=== PATIENT | female | born 1970 | race African-American/Black ===

== ENCOUNTER 2017-03-20 06:35 | Emergency (ER) | payer MEDICAID ==
[~2017-03-20] VITALS: Ht 162.6 cm; Wt 59.1 kg
[~2017-03-20 06:35] MED LIST: ALBU6.7H IH; FLUT1DIS IH
[2017-03-20 07:41] LABS: APPEARANCE,URINE CLEAR (CLEAR); GLUCOSE, URINE (UA) NEGATIVE (NEGATIVE); KETONES,URINE NEGATIVE (NEGATIVE); LEUKOCYTE ESTERASE ,URINE NEGATIVE (NEGATIVE); OCCULT BLOOD,URINE NEGATIVE (NEGATIVE); PROTEIN,URINE NEGATIVE (NEGATIVE)
[2017-03-20 07:42] LABS: ADD UA MICROSCOPIC NO
[2017-03-20] MEDS ORDERED: ONDANSETRON HCL 4 MG/2 ML VIAL IVP ONE (08:15)
[2017-03-20] MEDS ORDERED: KETOROLAC TROMETHAMINE 30 MG/ML VIAL IVP ONE (08:15)
[2017-03-20] MEDS ORDERED: SODIUM CHLORIDE 0.9% 1,000 ML IV ONE (08:15)
[2017-03-20 08:34] LABS: HEMATOCRIT 22.2 % (36-46); HEMOGLOBIN 7.4 g/dL (12.0-16.0); MEAN CORPUSCULAR HEMOGLOBIN 33.3 pg (26.0-34.0); MEAN CORPUSCULAR HGB CONC 33.4 G/dL (31.0-37.0); MEAN CORPUSCULAR VOLUME 100 fL (80-100); PLATELET COUNT (AUTO) 119 K/uL (150-450); RED BLOOD CELL COUNT(AUTO) 2.23 MIL/uL (4.00-5.20); RED CELL DISTRIBUTION WIDTH 33.7 % (11.5-14.5); WHITE BLOOD COUNT (AUTO) 3.8 K/uL (4.5-11.0)
[2017-03-20 08:45] LABS: ANION GAP 9 mmol/L (8-16); CALCIUM, TOTAL 8.9 mg/dL (8.8-10.5); CARBON DIOXIDE 29 mmol/L (22-29); CHLORIDE 104 mmol/L (98-107); CREATININE 0.57 mg/dL (0.60-1.30); GLOMERULAR FILTR. RATE CALC > 60 mL/min (>60); POTASSIUM 3.5 mmol/L (3.5-5.1); SODIUM SERUM 142 mmol/L (136-145); UREA NITROGEN, BLOOD 12 mg/dL (7-18)
[2017-03-20 08:50] LABS: ALANINE AMINOTRANSFERASE 32 U/L (12-78); ALBUMIN 3.9 g/dL (3.4-5.0); ASPARTATE AMINOTRANSFERASE 61 U/L (15-37); BILIRUBIN,TOTAL 0.7 mg/dL (0.1-1.0); TOTAL PROTEIN, SERUM 7.7 g/dL (6.4-8.2)
[2017-03-20 09:02] LABS: LYMPHOCYTES % (MANUAL) 58 % (22-44); REACTIVE LYMPHOCYTES 4 % (0-0); TOTAL CELLS COUNTED 100
[2017-03-20 09:50] VITALS: BP 121/83
== END 2017-03-20 10:09 | disposition home or self-care (01) ==
LOC: EMS 06:37
DX: R19.7 Diarrhea, unspecified (principal); R07.81 Pleurodynia; D64.9 Anemia, unspecified; R11.2 Nausea with vomiting, unspecified; J45.909 Unspecified asthma, uncomplicated; F12.90 Cannabis use, unspecified, uncomplicated; F17.210 Nicotine dependence, cigarettes, uncomplicated; Z91.040 Latex allergy status; Z88.8 Allergy status to other drugs, medicaments and biological substances
CPT/HCPCS: 36415; 80053; 81003; 83690; 84703; 85025; 96361; 96374; 96375; 99284; J1885; J2405; J7030

== ENCOUNTER 2017-04-26 01:42 | Inpatient (IN) | payer MEDICAID ==
[~2017-04-26] VITALS: Ht 162.6 cm; Wt 59.0 kg
[2017-04-26] VITALS (18 sets, daily range): BP systolic 94–118; BP diastolic 54–74
[2017-04-26 02:50] LABS: BASOPHILS % (AUTO) 0.1 % (0.0-2.0); LYMPHOCYTES # (AUTO) 2.2 K/uL (1.0-4.8); LYMPHOCYTES % (AUTO) 46.8 % (22.0-44.0); MEAN CORPUSCULAR HGB CONC 33.4 G/dL (31.0-37.0); MEAN CORPUSCULAR VOLUME 93 fL (80-100); MONOCYTES % (AUTO) 0.5 % (2.0-9.0); NEUTROPHILS # (AUTO) 2.3 K/uL (1.8-7.7); NEUTROPHILS % (AUTO) 49.6 % (40.0-70.0); PLATELET COUNT (AUTO) 149 K/uL (150-450); RED BLOOD CELL COUNT(AUTO) 2.16 MIL/uL (4.00-5.20); RED CELL DISTRIBUTION WIDTH 26.9 % (11.5-14.5); WHITE BLOOD COUNT (AUTO) 4.7 K/uL (4.5-11.0)
[2017-04-26 02:52] LABS: HEMATOCRIT 20.1 % (36-46); HEMOGLOBIN 6.7 g/dL (12.0-16.0)
[2017-04-26 02:54] LABS: ANION GAP 6 mmol/L (8-16); CALCIUM, TOTAL 8.3 mg/dL (8.8-10.5); CARBON DIOXIDE 28 mmol/L (22-29); CHLORIDE 106 mmol/L (98-107); CREATININE 0.73 mg/dL (0.60-1.30); GLOMERULAR FILTR. RATE CALC > 60 mL/min (>60); POTASSIUM 3.6 mmol/L (3.5-5.1); SODIUM SERUM 140 mmol/L (136-145); UREA NITROGEN, BLOOD 12 mg/dL (7-18)
[2017-04-26 03:00] LABS: ALANINE AMINOTRANSFERASE 22 U/L (12-78); ALBUMIN 3.6 g/dL (3.4-5.0); ASPARTATE AMINOTRANSFERASE 43 U/L (15-37); BILIRUBIN,TOTAL 0.6 mg/dL (0.1-1.0); TOTAL PROTEIN, SERUM 6.8 g/dL (6.4-8.2)
[2017-04-26] MEDS ORDERED: SODIUM CHLORIDE 0.9% 250 ML IV ONE ×2 (03:05→11:57)
[2017-04-26] MEDS ORDERED: DiphenhydrAMINE HCL 25 MG CAPSULE PO ONE (03:15)
[2017-04-26] MEDS ORDERED: HYDROmorphone 2 MG/ML SYRINGE IVP ONE (03:15)
[2017-04-26] MEDS ORDERED: ONDANSETRON HCL 4 MG/2 ML VIAL IVP ONE (03:15)
[2017-04-26] MEDS ORDERED: ACETAMINOPHEN 500 MG TABLET PO ONE (03:15)
[2017-04-26 03:46] LABS: LACTATE DEHYDROGENASE 1347 U/L (81-234)
[2017-04-26 03:58] LABS: INR 1.3 (0.9-1.1); IRON, SERUM 162 mcg/dL (50-175); PROTHROMBIN TIME 13.4 SEC (9.4-11.6); TOTAL IRON BINDING CAPACITY 206 mcg/dL (250-450)
[2017-04-26 04:10] LABS: APPEARANCE,URINE CLEAR (CLEAR); GLUCOSE, URINE (UA) NEGATIVE (NEGATIVE); KETONES,URINE NEGATIVE (NEGATIVE); LEUKOCYTE ESTERASE ,URINE MODERATE (NEGATIVE); OCCULT BLOOD,URINE NEGATIVE (NEGATIVE); PH,URINE 5.5 (5.0-8.0); PROTEIN,URINE NEGATIVE (NEGATIVE)
[2017-04-26 04:31] LABS: B-TYPE NATRIURETIC PEPTIDE 23 pg/mL (0-100)
[2017-04-26] MEDS ORDERED: BISACODYL 10 MG RECTAL RECTAL SUPPOSITORY PR PRN (05:30)
[2017-04-26] MEDS ORDERED: MORPHINE SULFATE 4 MG/ML SYRINGE IVP PRN (05:30)
[2017-04-26] MEDS ORDERED: ACETAMINOPHEN 325 MG TABLET PO PRN ×2 (05:30)
[2017-04-26] MEDS ORDERED: MAGNESIUM HYDROXIDE SUSPENSION 30 ML UDCUP PO PRN (05:30)
[2017-04-26] MEDS ORDERED: ONDANSETRON HCL 4 MG/2 ML VIAL IVP PRN ×2 (05:30)
[2017-04-26] MEDS ORDERED: ZOLPIDEM TARTRATE 5 MG TABLET PO PRN (05:30)
[2017-04-26] MEDS ORDERED: 0.9% SODIUM CHLORIDE 10 ML SYRINGE IVP PRN (05:30)
[2017-04-26 05:35] LABS: RBC,URINE 0-2 /HPF (0-2); SQUAMOUS EPITHELIAL CELL,UR Rare /LPF (None Seen)
[2017-04-26] MEDS: PANTOPRAZOLE SODIUM 40 MG DR TABLET PO SCH (09:49)
[2017-04-26 16:41] LABS: BASOPHILS % (AUTO) 0.2 % (0.0-2.0); EOSINOPHILS % (AUTO) 3.8 % (1.0-6.0); HEMATOCRIT 28.1 % (36-46); HEMOGLOBIN 9.6 g/dL (12.0-16.0); LYMPHOCYTES % (AUTO) 50.3 % (22.0-44.0); MEAN CORPUSCULAR HEMOGLOBIN 31.2 pg (26.0-34.0); MEAN CORPUSCULAR HGB CONC 34.2 G/dL (31.0-37.0); MEAN CORPUSCULAR VOLUME 91 fL (80-100); MONOCYTES % (AUTO) 0.8 % (2.0-9.0); NEUTROPHILS # (AUTO) 1.8 K/uL (1.8-7.7); NEUTROPHILS % (AUTO) 44.9 % (40.0-70.0); PLATELET COUNT (AUTO) 129 K/uL (150-450); RED BLOOD CELL COUNT(AUTO) 3.07 MIL/uL (4.00-5.20); RED CELL DISTRIBUTION WIDTH 18.9 % (11.5-14.5); WHITE BLOOD COUNT (AUTO) 3.9 K/uL (4.5-11.0)
[2017-04-26] MEDS ORDERED: INFLUENZA VIRUS VACCINE QVS 2017-18 (3YR+)/PF 60 MCG/0.5 ML SYRINGE IM ONE (19:00)
[2017-04-26] MEDS ORDERED: PNEUMOCOCCAL VACCINE POLYVALENT 0.5 ML VIAL [PPSV23] IM ONE (19:00)
[2017-04-26] MEDS: OxyCODONE HCL/ACETAMINOPHEN 5-325 MG TABLET PO PRN (20:49)
[2017-04-26 21:27] LABS: RBC MORPHOLOGY COMMENT ABNORMAL RBC MORPH
[2017-04-27] VITALS (7 sets, daily range): BP systolic 108–123; BP diastolic 57–75
[2017-04-27] MEDS: OxyCODONE HCL/ACETAMINOPHEN 5-325 MG TABLET PO PRN
[2017-04-27 05:58] LABS: BASOPHILS # (AUTO) 0.01 K/uL (0.00-0.20); BASOPHILS % (AUTO) 0.4 % (0.0-2.0); EOSINOPHILS # (AUTO) 0.15 K/uL (0.00-0.70); EOSINOPHILS % (AUTO) 3.83 % (1.0-6.0); HEMATOCRIT 28.5 % (36-46); HEMOGLOBIN 9.5 g/dL (12.0-16.0); LYMPHOCYTES # (AUTO) 2.1 K/uL (1.0-4.8); LYMPHOCYTES % (AUTO) 55.6 % (22.0-44.0); MEAN CORPUSCULAR HEMOGLOBIN 30.6 pg (26.0-34.0); MEAN CORPUSCULAR HGB CONC 33.4 G/dL (31.0-37.0); MEAN CORPUSCULAR VOLUME 91 fL (80-100); MONOCYTES % (AUTO) 0.6 % (2.0-9.0); NEUTROPHILS # (AUTO) 1.5 K/uL (1.8-7.7); NEUTROPHILS % (AUTO) 39.6 % (40.0-70.0); PLATELET COUNT (AUTO) 116 K/uL (150-450); RED BLOOD CELL COUNT(AUTO) 3.12 MIL/uL (4.00-5.20); RED CELL DISTRIBUTION WIDTH 18.5 % (11.5-14.5); WHITE BLOOD COUNT (AUTO) 3.8 K/uL (4.5-11.0)
[2017-04-27 06:37] LABS: ALANINE AMINOTRANSFERASE 24 U/L (12-78); ALBUMIN 3.2 g/dL (3.4-5.0); ANION GAP 3 mmol/L (8-16); ASPARTATE AMINOTRANSFERASE 58 U/L (15-37); BILIRUBIN,TOTAL 0.5 mg/dL (0.1-1.0); CALCIUM, TOTAL 8.1 mg/dL (8.8-10.5); CARBON DIOXIDE 30 mmol/L (22-29); CHLORIDE 107 mmol/L (98-107); CHOL/HDL RATIO 2.6 (3.9-5.7); CREATININE 0.81 mg/dL (0.60-1.30); GLOMERULAR FILTR. RATE CALC > 60 mL/min (>60); PHOSPHORUS 4.4 mg/dL (2.5-4.9); POTASSIUM 4.2 mmol/L (3.5-5.1); SODIUM SERUM 140 mmol/L (136-145); THYROID STIMULATING HORMONE 2.88 uIU/mL (0.36-3.74); TOTAL PROTEIN, SERUM 6.4 g/dL (6.4-8.2); UREA NITROGEN, BLOOD 12 mg/dL (7-18)
[2017-04-27] MEDS: PANTOPRAZOLE SODIUM 40 MG DR TABLET PO SCH (08:05)
[2017-04-27] MEDS: IPRATROPIUM BROMIDE 0.5 MG/2.5 ML NEB SOLUTION NEB PRN ×2 (08:38→16:27)
[2017-04-27] MEDS: ALBUTEROL SULFATE 2.5 MG/0.5 ML NEB SOLUTION NEB PRN ×2 (08:38→16:27)
[2017-04-27 09:37] LABS: RBC MORPHOLOGY COMMENT ABNORMAL RBC MORPH
[2017-04-27] MEDS: CHOLECALCIFEROL (VIT D3) 1,000 UNITS TABLET PO SCH (15:52)
[2017-04-27] MEDS: PredniSONE 20 MG TABLET PO SCH (15:52)
[2017-04-28 03:52] VITALS: BP 97/64
[2017-04-28 07:52] VITALS: BP 121/78
[2017-04-28] MEDS: PredniSONE 20 MG TABLET PO SCH (08:17)
[2017-04-28] MEDS: CHOLECALCIFEROL (VIT D3) 1,000 UNITS TABLET PO SCH (08:18)
[2017-04-28] MEDS: PANTOPRAZOLE SODIUM 40 MG DR TABLET PO SCH (08:18)
[2017-04-28 09:38] LABS: BASOPHILS % (AUTO) 0.3 % (0.0-2.0); EOSINOPHILS % (AUTO) 0.6 % (1.0-6.0); HEMATOCRIT 32.1 % (36-46); LYMPHOCYTES # (AUTO) 1.5 K/uL (1.0-4.8); MEAN CORPUSCULAR HEMOGLOBIN 31.4 pg (26.0-34.0); MEAN CORPUSCULAR HGB CONC 34.2 G/dL (31.0-37.0); MEAN CORPUSCULAR VOLUME 92 fL (80-100); MONOCYTES % (AUTO) 0.6 % (2.0-9.0); NEUTROPHILS # (AUTO) 3.1 K/uL (1.8-7.7); NEUTROPHILS % (AUTO) 66.5 % (40.0-70.0); PLATELET COUNT (AUTO) 119 K/uL (150-450); RED CELL DISTRIBUTION WIDTH 18.9 % (11.5-14.5); WHITE BLOOD COUNT (AUTO) 4.7 K/uL (4.5-11.0)
[2017-04-28] MEDS ORDERED: AZIT500T4 PO (10:48)
[2017-04-28] MEDS ORDERED: PRED10TA3 PO (10:48)
[2017-04-28 11:05] LABS: RBC MORPHOLOGY COMMENT ABNORMAL RBC MORPH
[2017-04-28 11:32] VITALS: BP 120/73
[2017-04-28] MEDS ORDERED: PRED20 PO (11:37)
[2017-04-28] MEDS ORDERED: AZIT250T9 PO (11:39)
[2017-04-28] MEDS ORDERED: CHOL20002 PO (11:40)
== END 2017-04-28 13:00 | disposition home or self-care (01) | DRG 663 ==
LOC: EMS 01:43 → 4E 05:34
PROVIDERS: ADMIT Internal Medicine; ATTEND Internal Medicine
PROC: 30233N1 Transfusion of Nonautologous Red Blood Cells into Peripheral Vein, Percutaneous Approach (ICD-10-PCS; principal; 2017-04-26)
PROC: 3E0234Z Introduction of Serum, Toxoid and Vaccine into Muscle, Percutaneous Approach (ICD-10-PCS; 2017-04-26)
DX: D64.9 Anemia, unspecified (principal); J44.1 Chronic obstructive pulmonary disease with (acute) exacerbation; D86.9 Sarcoidosis, unspecified; F10.10 Alcohol abuse, uncomplicated; F15.10 Other stimulant abuse, uncomplicated; F17.200 Nicotine dependence, unspecified, uncomplicated; E55.9 Vitamin D deficiency, unspecified; Z91.19 Patient's noncompliance with other medical treatment and regimen; E16.2 Hypoglycemia, unspecified; F12.90 Cannabis use, unspecified, uncomplicated; Z88.8 Allergy status to other drugs, medicaments and biological substances; Z91.040 Latex allergy status; Z71.51 Drug abuse counseling and surveillance of drug abuser; Z71.41 Alcohol abuse counseling and surveillance of alcoholic; Z71.6 Tobacco abuse counseling; Z23 Encounter for immunization
CPT/HCPCS: 82271; 82306; 83540; 83550; 83615; 83735; 84100; 84443; 85045; 86850; 86900; 86901; 86920; 90471; 94640; 96374; 99285; G0480; J1170; J2405; J7050; P9016

== ENCOUNTER 2018-09-26 14:41 | Emergency (ER) | payer MEDICAID, OTHER ==
[~2018-09-26] VITALS: Ht 162.6 cm; Wt 61.4 kg
[~2018-09-26 14:41] MED LIST changes: +AZIT250T9 PO; +AZIT500T4 PO; +CHOL20002 PO; +PRED10TA3 PO; +PRED20 PO
[2018-09-26 15:06] VITALS: BP 146/63
[2018-09-26] MEDS ORDERED: IPRATROPIUM BROMIDE 0.5 MG/2.5 ML NEB SOLUTION NEB ONE ×2 (15:15)
[2018-09-26] MEDS ORDERED: ALBUTEROL SULFATE 2.5 MG/0.5 ML NEB SOLUTION NEB ONE (15:15)
[2018-09-26 15:19] LABS: GLUCOSE,POINT OF CARE 163 MG/DL (70-110)
[2018-09-26 15:30] LABS: BASOPHILS % (AUTO) 0.7 % (0.0-2.0); EOSINOPHILS % (AUTO) 0.5 % (1.0-6.0); HEMATOCRIT 37.4 % (36-46); HEMOGLOBIN 12.2 g/dL (12.0-16.0); LYMPHOCYTES # (AUTO) 1.8 K/uL (1.0-4.8); LYMPHOCYTES % (AUTO) 13.6 % (22.0-44.0); MEAN CORPUSCULAR HEMOGLOBIN 26.4 pg (26.0-34.0); MEAN CORPUSCULAR HGB CONC 32.7 G/dL (31.0-37.0); MEAN CORPUSCULAR VOLUME 81 fL (80-100); MONOCYTES # (AUTO) 0.7 K/uL (0.1-1.0); NEUTROPHILS # (AUTO) 10.9 K/uL (1.8-7.7); NEUTROPHILS % (AUTO) 80.2 % (40.0-70.0); PLATELET COUNT (AUTO) 257 K/uL (150-450); RED BLOOD CELL COUNT(AUTO) 4.64 MIL/uL (4.00-5.20); RED CELL DISTRIBUTION WIDTH 13.6 % (11.5-14.5)
[2018-09-26 15:46] LABS: ANION GAP 8 mmol/L (8-16); CARBON DIOXIDE 27 mmol/L (22-29); CHLORIDE 101 mmol/L (98-107); CREATININE 0.92 mg/dL (0.60-1.30); GLOMERULAR FILTR. RATE CALC > 60 mL/min (>60); GLUCOSE,RANDOM 166 mg/dL (70-110); POTASSIUM 4.1 mmol/L (3.5-5.1); SODIUM SERUM 136 mmol/L (136-145); UREA NITROGEN, BLOOD 12 mg/dL (7-18)
[2018-09-26 15:52] LABS: ALANINE AMINOTRANSFERASE 19 U/L (12-78); ALBUMIN 3.1 g/dL (3.4-5.0); ALKALINE PHOSPHATASE 100 U/L (46-116); ASPARTATE AMINOTRANSFERASE 21 U/L (15-37); BILIRUBIN,TOTAL 0.5 mg/dL (0.1-1.0); TOTAL PROTEIN, SERUM 8.3 g/dL (6.4-8.2)
[2018-09-26 16:04] LABS: B-TYPE NATRIURETIC PEPTIDE 13 pg/mL (0-100)
== END 2018-09-26 20:30 | disposition left against medical advice (07) ==
LOC: EMS 14:42
DX: R05 Cough (principal); R06.2 Wheezing; R06.02 Shortness of breath; J45.909 Unspecified asthma, uncomplicated; F17.210 Nicotine dependence, cigarettes, uncomplicated; F12.90 Cannabis use, unspecified, uncomplicated; Z53.21 Procedure and treatment not carried out due to patient leaving prior to being seen by health care provider
CPT/HCPCS: 93005; 94640

== ENCOUNTER 2018-10-05 12:47 | Emergency (ER) | payer OTHER ==
[~2018-10-05] VITALS: Ht 162.6 cm; Wt 56.8 kg
[2018-10-05] MEDS ORDERED: ONDANSETRON HCL 4 MG/2 ML VIAL IVP ONE (14:30)
[2018-10-05] MEDS ORDERED: SODIUM CHLORIDE 0.9% 1,000 ML IV ONE (14:30)
[2018-10-05 15:01] LABS: BASOPHILS % (AUTO) 0.5 % (0.0-2.0); EOSINOPHILS % (AUTO) 3.4 % (1.0-6.0); HEMATOCRIT 35.2 % (36-46); HEMOGLOBIN 11.7 g/dL (12.0-16.0); LYMPHOCYTES # (AUTO) 1.3 K/uL (1.0-4.8); LYMPHOCYTES % (AUTO) 20.4 % (22.0-44.0); MEAN CORPUSCULAR HEMOGLOBIN 26.6 pg (26.0-34.0); MEAN CORPUSCULAR HGB CONC 33.1 G/dL (31.0-37.0); MEAN CORPUSCULAR VOLUME 80 fL (80-100); MONOCYTES # (AUTO) 0.3 K/uL (0.1-1.0); MONOCYTES % (AUTO) 5.2 % (2.0-9.0); NEUTROPHILS # (AUTO) 4.5 K/uL (1.8-7.7); NEUTROPHILS % (AUTO) 70.5 % (40.0-70.0); PLATELET COUNT (AUTO) 398 K/uL (150-450); RED BLOOD CELL COUNT(AUTO) 4.39 MIL/uL (4.00-5.20); RED CELL DISTRIBUTION WIDTH 13.6 % (11.5-14.5)
[2018-10-05 15:28] LABS: ANION GAP 10 mmol/L (8-16); CALCIUM, TOTAL 8.7 mg/dL (8.8-10.5); CARBON DIOXIDE 25 mmol/L (22-29); CHLORIDE 104 mmol/L (98-107); CREATININE 0.67 mg/dL (0.60-1.30); GLOMERULAR FILTR. RATE CALC > 60 mL/min (>60); GLUCOSE,RANDOM 81 mg/dL (70-110); POTASSIUM 3.6 mmol/L (3.5-5.1); SODIUM SERUM 139 mmol/L (136-145); UREA NITROGEN, BLOOD 12 mg/dL (7-18)
[2018-10-05 15:30] LABS: ALANINE AMINOTRANSFERASE 15 U/L (12-78); ALBUMIN 2.6 g/dL (3.4-5.0); ASPARTATE AMINOTRANSFERASE 13 U/L (15-37); BILIRUBIN,TOTAL 0.3 mg/dL (0.1-1.0); LIPASE 86 U/L (73-393); TOTAL PROTEIN, SERUM 7.6 g/dL (6.4-8.2)
[2018-10-05 16:32] LABS: ALKALINE PHOSPHATASE 99 U/L (46-116)
[2018-10-05 18:54] VITALS: BP 135/83
== END 2018-10-05 19:07 | disposition home or self-care (01) ==
LOC: EMS 12:49
DX: K21.9 Gastro-esophageal reflux disease without esophagitis (principal); J44.9 Chronic obstructive pulmonary disease, unspecified; F12.90 Cannabis use, unspecified, uncomplicated; F17.210 Nicotine dependence, cigarettes, uncomplicated; Z91.040 Latex allergy status; Z88.8 Allergy status to other drugs, medicaments and biological substances
CPT/HCPCS: 80053; 83690; 85025; 96361; 96374; 99285; J2405; J7030

== ENCOUNTER 2019-03-05 22:08 | Inpatient (IN) | payer MEDICAID, OTHER ==
[~2019-03-05] VITALS: Ht 162.6 cm; Wt 62.4 kg
[2019-03-05 22:30] LABS: EOSINOPHILS % (AUTO) 9.5 % (1.0-6.0); HEMATOCRIT 44.9 % (36-46); HEMOGLOBIN 14.2 g/dL (12.0-16.0); LYMPHOCYTES # (AUTO) 3.5 K/uL (1.0-4.8); LYMPHOCYTES % (AUTO) 52.4 % (22.0-44.0); MEAN CORPUSCULAR HGB CONC 31.6 G/dL (31.0-37.0); MEAN CORPUSCULAR VOLUME 85 fL (80-100); MONOCYTES # (AUTO) 0.5 K/uL (0.1-1.0); MONOCYTES % (AUTO) 7.2 % (2.0-9.0); NEUTROPHILS % (AUTO) 29.9 % (40.0-70.0); PLATELET COUNT (AUTO) 295 K/uL (150-450); RED BLOOD CELL COUNT(AUTO) 5.26 MIL/uL (4.00-5.20); RED CELL DISTRIBUTION WIDTH 14.5 % (11.5-14.5)
[2019-03-05 22:42] LABS: ANION GAP 7 mmol/L (8-16); CALCIUM, TOTAL 9.7 mg/dL (8.8-10.5); CARBON DIOXIDE 30 mmol/L (22-29); CHLORIDE 106 mmol/L (98-107); CREATININE 1.03 mg/dL (0.60-1.30); GLOMERULAR FILTR. RATE CALC > 60 mL/min (>60); GLUCOSE,RANDOM 111 mg/dL (70-110); POTASSIUM 4.1 mmol/L (3.5-5.1); SODIUM SERUM 143 mmol/L (136-145); UREA NITROGEN, BLOOD 10 mg/dL (7-18)
[2019-03-05 22:47] LABS: INR 1.1 (0.9-1.1); PROTHROMBIN TIME 11.8 SEC (9.4-11.6)
[2019-03-05 22:53] LABS: B-TYPE NATRIURETIC PEPTIDE 17 pg/mL (0-100)
[2019-03-05 23:07] LABS: ALANINE AMINOTRANSFERASE 13 U/L (12-78); ALBUMIN 3.9 g/dL (3.4-5.0); ALKALINE PHOSPHATASE 115 U/L (46-116); ASPARTATE AMINOTRANSFERASE 27 U/L (15-37); BILIRUBIN,TOTAL 0.2 mg/dL (0.1-1.0); CREATINE KINASE, TOTAL ONLY 129 U/L (26-192); TOTAL PROTEIN, SERUM 8.5 g/dL (6.4-8.2)
[2019-03-05] MEDS ORDERED: AZITHROMYCIN 500 MG/NS 250 ML IV ONE (23:15)
[2019-03-05] MEDS ORDERED: MethylPREDNISolone SOD SUCC 125 MG/2 ML VIAL IVP ONE (23:15)
[2019-03-05] MEDS ORDERED: ALBUTEROL SULFATE 2.5 MG/0.5 ML NEB SOLUTION NEB ONE (23:15)
[2019-03-05] MEDS ORDERED: ALBUTEROL SULFATE 5 MG/ML 20 ML NEB SOLN [BULK] NEB ONE (23:15)
[2019-03-05] MEDS ORDERED: IPRATROPIUM BROMIDE 0.5 MG/2.5 ML NEB SOLUTION NEB ONE (23:15)
[2019-03-05] MEDS ORDERED: 0.9% SODIUM CHLORIDE 5 ML NEB SOLUTION NEB ONE ×3 (23:26)
[2019-03-05] MEDS ORDERED: ALBUTEROL SULFATE 2.5 MG/0.5 ML NEB SOLUTION NEB PRN (23:30)
[2019-03-05] MEDS ORDERED: IPRATROPIUM BROMIDE 0.5 MG/2.5 ML NEB SOLUTION NEB PRN (23:30)
[2019-03-05] MEDS ORDERED: ONDANSETRON HCL 4 MG/2 ML VIAL IVP PRN (23:30)
[2019-03-05] MEDS ORDERED: MORPHINE SULFATE 2 MG/ML SYRINGE IVP PRN (23:30)
[2019-03-05] MEDS ORDERED: BISACODYL 10 MG RECTAL RECTAL SUPPOSITORY PR PRN (23:30)
[2019-03-05] MEDS ORDERED: MAGNESIUM HYDROXIDE SUSPENSION 30 ML UDCUP PO PRN (23:30)
[2019-03-06] VITALS (7 sets, daily range): BP systolic 110–128; BP diastolic 65–78
[2019-03-06] MEDS ORDERED: CefTRIAXone 1 GM/DEXTROSE 50 ML IV SCH
[2019-03-06 00:19] LABS: INFLUENZA TYPE A NEGATIVE FOR TYPE A (NEGATIVE); INFLUENZA TYPE B NEGATIVE FOR TYPE B (NEGATIVE)
[2019-03-06] MEDS ORDERED: SODIUM CHLORIDE 0.9% 250 ML IV ONE (00:50)
[2019-03-06] MEDS: CefTRIAXone 1 GM/DEXTROSE 50 ML IV SCH (01:16)
[2019-03-06] MEDS: MethylPREDNISolone SOD SUCC 125 MG/2 ML VIAL IVP SCH ×4 (01:17→18:33)
[2019-03-06] MEDS: IPRATROPIUM BROMIDE 0.5 MG/2.5 ML NEB SOLUTION NEB SCH ×4 (02:33→19:05)
[2019-03-06] MEDS ORDERED: PNEUMOCOCCAL VACCINE POLYVALENT 0.5 ML VIAL [PPSV23] IM ONE (03:30)
[2019-03-06] MEDS: DOCUSATE SODIUM 100 MG CAPSULE PO SCH ×2 (08:09→20:01)
[2019-03-06] MEDS: BENZONATATE 100 MG CAPSULE PO SCH ×3 (08:09→20:01)
[2019-03-06] MEDS: PANTOPRAZOLE SODIUM 40 MG DR TABLET PO SCH (08:09)
[2019-03-06] MEDS: CHOLECALCIFEROL (VIT D3) 2,000 UNITS TABLET PO SCH (08:09)
[2019-03-06] MEDS: ALBUTEROL SULFATE 2.5 MG/0.5 ML NEB SOLUTION NEB SCH ×3 (08:59→19:05)
[2019-03-06] MEDS ORDERED: CHOLECALCIFEROL (VIT D3) 2,000 UNITS TABLET PO SCH (09:00)
[2019-03-06] MEDS ORDERED: 0.9% SODIUM CHLORIDE 5 ML NEB SOLUTION NEB ONE (18:58)
[2019-03-06] MEDS: ACETAMINOPHEN 325 MG TABLET PO PRN (19:46)
[2019-03-06] MEDS: ZOLPIDEM TARTRATE 5 MG TABLET PO PRN (21:02)
[2019-03-06 21:05] LABS: APPEARANCE,URINE CLEAR (CLEAR); BILIRUBIN,URINE NEGATIVE (NEGATIVE); GLUCOSE, URINE (UA) NEGATIVE (NEGATIVE); KETONES,URINE NEGATIVE (NEGATIVE); LEUKOCYTE ESTERASE ,URINE NEGATIVE (NEGATIVE); NITRATE,URINE NEGATIVE (NEGATIVE); OCCULT BLOOD,URINE NEGATIVE (NEGATIVE); PROTEIN,URINE NEGATIVE (NEGATIVE); UROBILINOGEN,URINE 0.2 mg/dL (<=1.0)
[2019-03-06] MEDS: AZITHROMYCIN 500 MG/NS 250 ML IV SCH (22:43)
[2019-03-07] MEDS: MethylPREDNISolone SOD SUCC 125 MG/2 ML VIAL IVP SCH ×4 (00:11→18:17)
[2019-03-07] MEDS: CefTRIAXone 1 GM/DEXTROSE 50 ML IV SCH (00:12)
[2019-03-07] MEDS: ALBUTEROL SULFATE 2.5 MG/0.5 ML NEB SOLUTION NEB SCH ×4 (02:00→19:24)
[2019-03-07] MEDS: IPRATROPIUM BROMIDE 0.5 MG/2.5 ML NEB SOLUTION NEB SCH ×4 (02:00→19:24)
[2019-03-07 04:24] VITALS: BP 108/71
[2019-03-07] MEDS: ACETAMINOPHEN 325 MG TABLET PO PRN (08:09)
[2019-03-07] MEDS: DOCUSATE SODIUM 100 MG CAPSULE PO SCH ×2 (08:09→23:18)
[2019-03-07] MEDS: BENZONATATE 100 MG CAPSULE PO SCH ×3 (08:09→23:18)
[2019-03-07] MEDS: PANTOPRAZOLE SODIUM 40 MG DR TABLET PO SCH (08:10)
[2019-03-07] MEDS: CHOLECALCIFEROL (VIT D3) 2,000 UNITS TABLET PO SCH (08:10)
[2019-03-07 08:13] VITALS: BP 122/72
[2019-03-07] MEDS ORDERED: MethylPREDNISolone SOD SUCC 125 MG/2 ML VIAL IVP ONE (10:15)
[2019-03-07 11:22] VITALS: BP 116/66
[2019-03-07] MEDS: HYDROCODONE/ACETAMINOPHEN 5-325 MG TABLET PO PRN (12:48)
[2019-03-07 16:07] VITALS: BP 124/77
[2019-03-07 19:57] VITALS: BP 122/65
[2019-03-07] MEDS: BUDESONIDE 0.5 MG/2 ML NEB SOLUTION NEB SCH (20:42)
[2019-03-07] MEDS: AZITHROMYCIN 500 MG/NS 250 ML IV SCH (23:18)
[2019-03-07 23:41] VITALS: BP 110/65
[2019-03-08] MEDS: MethylPREDNISolone SOD SUCC 125 MG/2 ML VIAL IVP SCH ×4 (00:27→23:26)
[2019-03-08] MEDS: CefTRIAXone 1 GM/DEXTROSE 50 ML IV SCH (00:27)
[2019-03-08] MEDS: IPRATROPIUM BROMIDE 0.5 MG/2.5 ML NEB SOLUTION NEB SCH ×4 (02:19→20:02)
[2019-03-08] MEDS: ALBUTEROL SULFATE 2.5 MG/0.5 ML NEB SOLUTION NEB SCH ×4 (02:19→20:02)
[2019-03-08 04:21] VITALS: BP 106/59
[2019-03-08 05:43] LABS: HEMATOCRIT 35.8 % (36-46); HEMOGLOBIN 11.3 g/dL (12.0-16.0); MEAN CORPUSCULAR HEMOGLOBIN 26.8 pg (26.0-34.0); MEAN CORPUSCULAR HGB CONC 31.7 G/dL (31.0-37.0); MEAN CORPUSCULAR VOLUME 84 fL (80-100); PLATELET COUNT (AUTO) 236 K/uL (150-450); RED BLOOD CELL COUNT(AUTO) 4.24 MIL/uL (4.00-5.20); RED CELL DISTRIBUTION WIDTH 14.1 % (11.5-14.5)
[2019-03-08 05:57] LABS: ANION GAP 4 mmol/L (8-16); CALCIUM, TOTAL 9.1 mg/dL (8.8-10.5); CARBON DIOXIDE 28 mmol/L (22-29); CHLORIDE 105 mmol/L (98-107); CREATININE 0.88 mg/dL (0.60-1.30); GLOMERULAR FILTR. RATE CALC > 60 mL/min (>60); GLUCOSE,RANDOM 129 mg/dL (70-110); POTASSIUM 4.6 mmol/L (3.5-5.1); SODIUM SERUM 137 mmol/L (136-145); UREA NITROGEN, BLOOD 22 mg/dL (7-18)
[2019-03-08 07:11] LABS: BAND NEUTROPHILS % (MANUAL) 1 % (0-5); LYMPHOCYTES % (MANUAL) 4 % (22-44); MONOCYTES % (MANUAL) 1 % (2-9); SEGMENTED NEUTROPHILS % 94 % (40-70)
[2019-03-08 07:37] VITALS: BP 104/56
[2019-03-08] MEDS: PANTOPRAZOLE SODIUM 40 MG DR TABLET PO SCH (08:18)
[2019-03-08] MEDS: BENZONATATE 100 MG CAPSULE PO SCH ×3 (08:18→20:44)
[2019-03-08] MEDS: DOCUSATE SODIUM 100 MG CAPSULE PO SCH ×2 (08:18→20:44)
[2019-03-08] MEDS: CHOLECALCIFEROL (VIT D3) 2,000 UNITS TABLET PO SCH (08:18)
[2019-03-08] MEDS: BUDESONIDE 0.5 MG/2 ML NEB SOLUTION NEB SCH ×2 (08:20→20:02)
[2019-03-08] MEDS: HYDROCODONE/ACETAMINOPHEN 5-325 MG TABLET PO PRN (08:21)
[2019-03-08 16:01] VITALS: BP 112/62
[2019-03-08 19:41] VITALS: BP 124/76
[2019-03-08] MEDS: AZITHROMYCIN 500 MG/NS 250 ML IV SCH (23:25)
[2019-03-08] MEDS: ZOLPIDEM TARTRATE 5 MG TABLET PO PRN (23:25)
[2019-03-08 23:46] VITALS: BP 131/80
[2019-03-09] MEDS: CefTRIAXone 1 GM/DEXTROSE 50 ML IV SCH (00:34)
[2019-03-09] MEDS: ALBUTEROL SULFATE 2.5 MG/0.5 ML NEB SOLUTION NEB SCH ×4 (02:18→19:44)
[2019-03-09] MEDS: IPRATROPIUM BROMIDE 0.5 MG/2.5 ML NEB SOLUTION NEB SCH ×4 (02:18→19:44)
[2019-03-09 04:26] VITALS: BP 121/67
[2019-03-09 05:39] LABS: BASOPHILS % (AUTO) 0.2 % (0.0-2.0); EOSINOPHILS % (AUTO) 0 % (1.0-6.0); HEMATOCRIT 36.7 % (36-46); HEMOGLOBIN 11.7 g/dL (12.0-16.0); LYMPHOCYTES % (AUTO) 8.4 % (22.0-44.0); MEAN CORPUSCULAR HEMOGLOBIN 26.9 pg (26.0-34.0); MEAN CORPUSCULAR HGB CONC 31.8 G/dL (31.0-37.0); MEAN CORPUSCULAR VOLUME 85 fL (80-100); MONOCYTES # (AUTO) 0.2 K/uL (0.1-1.0); MONOCYTES % (AUTO) 2.1 % (2.0-9.0); NEUTROPHILS # (AUTO) 10.6 K/uL (1.8-7.7); PLATELET COUNT (AUTO) 214 K/uL (150-450); RED BLOOD CELL COUNT(AUTO) 4.33 MIL/uL (4.00-5.20); RED CELL DISTRIBUTION WIDTH 14.2 % (11.5-14.5)
[2019-03-09 06:50] LABS: NEUTROPHILS % (AUTO) 89.3 % (40.0-70.0)
[2019-03-09 07:24] VITALS: BP 111/67
[2019-03-09] MEDS: CHOLECALCIFEROL (VIT D3) 2,000 UNITS TABLET PO SCH (07:58)
[2019-03-09] MEDS: PANTOPRAZOLE SODIUM 40 MG DR TABLET PO SCH (07:58)
[2019-03-09] MEDS: BENZONATATE 100 MG CAPSULE PO SCH ×3 (07:59→20:39)
[2019-03-09] MEDS: MethylPREDNISolone SOD SUCC 125 MG/2 ML VIAL IVP SCH ×3 (07:59→23:36)
[2019-03-09] MEDS: DOCUSATE SODIUM 100 MG CAPSULE PO SCH ×2 (07:59→20:39)
[2019-03-09] MEDS: BUDESONIDE 0.5 MG/2 ML NEB SOLUTION NEB SCH ×2 (08:07→19:44)
[2019-03-09 11:49] VITALS: BP 115/64
[2019-03-09 15:49] VITALS: BP 126/75
[2019-03-09] MEDS ORDERED: 0.9% SODIUM CHLORIDE 5 ML NEB SOLUTION NEB ONE (19:10)
[2019-03-09 19:40] VITALS: BP 125/69
[2019-03-09] MEDS: HYDROCODONE/ACETAMINOPHEN 5-325 MG TABLET PO PRN (20:39)
[2019-03-09] MEDS: AZITHROMYCIN 500 MG/NS 250 ML IV SCH (23:36)
[2019-03-10] VITALS (7 sets, daily range): BP systolic 108–132; BP diastolic 59–78
[2019-03-10] MEDS: CefTRIAXone 1 GM/DEXTROSE 50 ML IV SCH (01:09)
[2019-03-10] MEDS: ZOLPIDEM TARTRATE 5 MG TABLET PO PRN ×2 (01:17→23:10)
[2019-03-10] MEDS: ALBUTEROL SULFATE 2.5 MG/0.5 ML NEB SOLUTION NEB SCH ×4 (01:58→20:16)
[2019-03-10] MEDS: IPRATROPIUM BROMIDE 0.5 MG/2.5 ML NEB SOLUTION NEB SCH ×4 (01:58→20:16)
[2019-03-10 06:49] LABS: EOSINOPHILS % (AUTO) 0 % (1.0-6.0); HEMATOCRIT 36.8 % (36-46); HEMOGLOBIN 11.9 g/dL (12.0-16.0); LYMPHOCYTES % (AUTO) 11.6 % (22.0-44.0); MEAN CORPUSCULAR HEMOGLOBIN 27.4 pg (26.0-34.0); MEAN CORPUSCULAR HGB CONC 32.3 G/dL (31.0-37.0); MEAN CORPUSCULAR VOLUME 85 fL (80-100); MONOCYTES # (AUTO) 0.3 K/uL (0.1-1.0); MONOCYTES % (AUTO) 2.9 % (2.0-9.0); NEUTROPHILS # (AUTO) 7.6 K/uL (1.8-7.7); PLATELET COUNT (AUTO) 221 K/uL (150-450); RED BLOOD CELL COUNT(AUTO) 4.34 MIL/uL (4.00-5.20); RED CELL DISTRIBUTION WIDTH 14.4 % (11.5-14.5)
[2019-03-10 06:51] LABS: NEUTROPHILS % (AUTO) 85.5 % (40.0-70.0)
[2019-03-10] MEDS: PANTOPRAZOLE SODIUM 40 MG DR TABLET PO SCH (08:17)
[2019-03-10] MEDS: DOCUSATE SODIUM 100 MG CAPSULE PO SCH ×2 (08:17→20:25)
[2019-03-10] MEDS: BENZONATATE 100 MG CAPSULE PO SCH ×3 (08:17→20:25)
[2019-03-10] MEDS: CHOLECALCIFEROL (VIT D3) 2,000 UNITS TABLET PO SCH (08:17)
[2019-03-10] MEDS: MethylPREDNISolone SOD SUCC 125 MG/2 ML VIAL IVP SCH ×3 (08:18→23:31)
[2019-03-10] MEDS ORDERED: PredniSONE 20 MG TABLET PO ONE (09:00)
[2019-03-10] MEDS: BUDESONIDE 0.5 MG/2 ML NEB SOLUTION NEB SCH ×2 (09:03→20:16)
[2019-03-10] MEDS: HYDROCODONE/ACETAMINOPHEN 5-325 MG TABLET PO PRN (09:27)
[2019-03-10] MEDS: AZITHROMYCIN 500 MG/NS 250 ML IV SCH (23:10)
[2019-03-11] MEDS: CefTRIAXone 1 GM/DEXTROSE 50 ML IV SCH (01:03)
[2019-03-11] MEDS: ALBUTEROL SULFATE 2.5 MG/0.5 ML NEB SOLUTION NEB SCH ×3 (02:25→15:31)
[2019-03-11] MEDS: IPRATROPIUM BROMIDE 0.5 MG/2.5 ML NEB SOLUTION NEB SCH ×3 (02:25→15:31)
[2019-03-11 05:04] VITALS: BP 118/71
[2019-03-11 07:35] VITALS: BP 127/77
[2019-03-11] MEDS: DOCUSATE SODIUM 100 MG CAPSULE PO SCH (08:34)
[2019-03-11] MEDS: CHOLECALCIFEROL (VIT D3) 2,000 UNITS TABLET PO SCH (08:35)
[2019-03-11] MEDS: BENZONATATE 100 MG CAPSULE PO SCH (08:35)
[2019-03-11] MEDS: PANTOPRAZOLE SODIUM 40 MG DR TABLET PO SCH (08:35)
[2019-03-11] MEDS ORDERED: PredniSONE 20 MG TABLET PO SCH (09:00)
[2019-03-11] MEDS: BUDESONIDE 0.5 MG/2 ML NEB SOLUTION NEB SCH (09:00)
[2019-03-11 11:18] VITALS: BP 119/66
[2019-03-11] MEDS ORDERED: AZIT250T9 PO (15:17)
[2019-03-11] MEDS ORDERED: BENZ-51 PO (15:18)
[2019-03-11] MEDS ORDERED: PRED20 PO ×3 (15:20→15:28)
[2019-03-11] MEDS ORDERED: PRED10 PO ×2 (15:21→15:22)
== END 2019-03-11 15:50 | disposition home or self-care (01) | DRG 141 ==
LOC: EMS 22:09 → 5S 23:30
PROVIDERS: ADMIT Internal Medicine; ATTEND Internal Medicine
DX: J45.902 Unspecified asthma with status asthmaticus (principal); J96.00 Acute respiratory failure, unspecified whether with hypoxia or hypercapnia; E43 Unspecified severe protein-calorie malnutrition; J45.901 Unspecified asthma with (acute) exacerbation; E11.9 Type 2 diabetes mellitus without complications; E56.9 Vitamin deficiency, unspecified; J44.9 Chronic obstructive pulmonary disease, unspecified; F17.210 Nicotine dependence, cigarettes, uncomplicated; R51 Headache; Z88.8 Allergy status to other drugs, medicaments and biological substances; Z91.040 Latex allergy status; Z68.23 Body mass index [BMI] 23.0-23.9, adult
CPT/HCPCS: 70450; 87040; 87804; 93005; 94640; 94644; 99291; G0378; J0456; J0696; J2930; J7050

== ENCOUNTER 2019-12-31 15:05 | Emergency (ER) | payer OTHER ==
[~2019-12-31] VITALS: Ht 162.6 cm; Wt 59.1 kg
[~2019-12-31 15:05] MED LIST changes: -ALBU6.7H IH; +ALBU6.7H9 IH; +AZIT-84 PO; -AZIT250T9 PO; -AZIT500T4 PO; +BENZ-51 PO; +PRED10 PO; -PRED10TA3 PO
[2019-12-31] MEDS ORDERED: ADV100 IH (15:58)
[2019-12-31] MEDS ORDERED: PredniSONE 20 MG TABLET PO ONE (16:00)
[2019-12-31] MEDS ORDERED: ALBUTEROL SULFATE HFA 90 MCG/PUFF 8 GM INHALER IH ONE (16:00)
[2019-12-31 16:32] VITALS: BP 120/86
== END 2019-12-31 17:00 | disposition home or self-care (01) ==
LOC: EMS 15:10
DX: J45.901 Unspecified asthma with (acute) exacerbation (principal); F17.210 Nicotine dependence, cigarettes, uncomplicated; F12.90 Cannabis use, unspecified, uncomplicated; Z91.040 Latex allergy status; Z88.8 Allergy status to other drugs, medicaments and biological substances; Z91.018 Allergy to other foods
CPT/HCPCS: 82962; 94640; 99283; 99406; J7512; J3535

== ENCOUNTER 2020-03-30 14:50 | Emergency (ER) | payer OTHER ==
[~2020-03-30] VITALS: Ht 162.6 cm; Wt 61.4 kg
[~2020-03-30 14:50] MED LIST changes: +ADV100 IH; -AZIT-84 PO; -BENZ-51 PO; -CHOL20002 PO; -FLUT1DIS IH; -PRED10 PO; -PRED20 PO
[2020-03-30] MEDS ORDERED: ALBUTEROL SULFATE HFA 90 MCG/PUFF 8 GM INHALER IH ONE (15:45)
[2020-03-30] MEDS ORDERED: PredniSONE 20 MG TABLET PO ONE (16:45)
[2020-03-30 18:00] VITALS: BP 149/83
== END 2020-03-30 17:59 | disposition home or self-care (01) ==
LOC: EMS 14:51
DX: J45.901 Unspecified asthma with (acute) exacerbation (principal); F17.210 Nicotine dependence, cigarettes, uncomplicated; E11.9 Type 2 diabetes mellitus without complications; Z91.040 Latex allergy status; Z91.018 Allergy to other foods
CPT/HCPCS: 71045; 94640; 99283; 99406; J7512; J3535

== ENCOUNTER 2020-04-14 15:55 | Emergency (ER) | payer OTHER ==
[~2020-04-14] VITALS: Ht 162.6 cm; Wt 63.6 kg
[2020-04-14] MEDS ORDERED: PredniSONE 20 MG TABLET PO ONE (16:30)
[2020-04-14] MEDS ORDERED: IPRATROPIUM BROMIDE 0.5 MG/2.5 ML NEB SOLUTION NEB ONE (16:30)
[2020-04-14] MEDS ORDERED: ALBUTEROL SULFATE 5 MG/ML 20 ML NEB SOLN [BULK] NEB ONE (16:30)
[2020-04-14] MEDS ORDERED: 0.9% SODIUM CHLORIDE 15 ML NEB SOLUTION NEB ONE (16:38)
[2020-04-14 17:11] VITALS: BP 118/62
[2020-04-14] MEDS ORDERED: ALBUTEROL SULFATE HFA 90 MCG/PUFF 8 GM INHALER IH ONE (18:00)
== END 2020-04-14 18:36 | disposition home or self-care (01) ==
LOC: EMS 15:55
DX: J45.909 Unspecified asthma, uncomplicated (principal); E11.9 Type 2 diabetes mellitus without complications; F17.210 Nicotine dependence, cigarettes, uncomplicated; F12.90 Cannabis use, unspecified, uncomplicated; Z91.040 Latex allergy status; Z88.8 Allergy status to other drugs, medicaments and biological substances; Z91.018 Allergy to other foods
CPT/HCPCS: 94640; 94644; 99285; J7512; J3535

== ENCOUNTER 2020-06-27 15:22 | Emergency (ER) | payer OTHER ==
[~2020-06-27] VITALS: Ht 162.6 cm; Wt 79.5 kg
[~2020-06-27 15:22] MED LIST changes: -ADV100 IH; +FLUT1DIS4 IH
[2020-06-27 17:05] VITALS: BP 139/81
[2020-06-27] MEDS ORDERED: ALBU8HFA IH (17:14)
[2020-06-27] MEDS ORDERED: FLUT1BLS8 IH (17:14)
[2020-06-27] MEDS ORDERED: ALBUTEROL SULFATE HFA 90 MCG/PUFF 8 GM INHALER IH ONE (17:15)
== END 2020-06-27 18:00 | disposition home or self-care (01) ==
LOC: EMS 15:22
DX: J45.901 Unspecified asthma with (acute) exacerbation (principal); E11.9 Type 2 diabetes mellitus without complications; F17.210 Nicotine dependence, cigarettes, uncomplicated; F12.90 Cannabis use, unspecified, uncomplicated; Z20.828 Contact with and (suspected) exposure to other viral communicable diseases; Z91.040 Latex allergy status; Z88.8 Allergy status to other drugs, medicaments and biological substances; Z91.018 Allergy to other foods
CPT/HCPCS: 71045; 94640; 99284; U0003; J3535

== ENCOUNTER 2021-08-26 15:29 | Emergency (ER) | payer OTHER ==
[~2021-08-26] VITALS: Ht 162.6 cm; Wt 0.6 kg
[~2021-08-26 15:29] MED LIST changes: -ALBU6.7H9 IH; +ALBU8HFA IH; +FLUT1BLS8 IH; -FLUT1DIS4 IH
[2021-08-26] MEDS ORDERED: IPRATROPIUM BROMIDE 0.5 MG/2.5 ML NEB SOLUTION NEB ONE (16:45)
[2021-08-26] MEDS ORDERED: MethylPREDNISolone SOD SUCC 125 MG/2 ML VIAL IVP ONE (16:45)
[2021-08-26] MEDS ORDERED: ALBUTEROL SULFATE 5 MG/ML 20 ML NEB SOLN [BULK] NEB ONE (16:45)
[2021-08-26 17:45] LABS: COVID AG,FIA SOURCE NASOPHARYNGEAL
[2021-08-26] MEDS ORDERED: PRED20 PO (18:44)
[2021-08-26] MEDS ORDERED: ALBUTEROL SULFATE HFA 90 MCG/PUFF 8 GM INHALER IH ONE (18:45)
[2021-08-26 18:54] VITALS: BP 144/77
== END 2021-08-26 19:36 | disposition home or self-care (01) ==
LOC: EMS 15:38
DX: J45.901 Unspecified asthma with (acute) exacerbation (principal); J44.9 Chronic obstructive pulmonary disease, unspecified; E11.9 Type 2 diabetes mellitus without complications; F12.90 Cannabis use, unspecified, uncomplicated; F17.210 Nicotine dependence, cigarettes, uncomplicated; Z91.040 Latex allergy status; Z88.8 Allergy status to other drugs, medicaments and biological substances; Z79.899 Other long term (current) drug therapy; Z20.822 Contact with and (suspected) exposure to COVID-19
CPT/HCPCS: 71045; 87426; 94640; 96374; 99284; J2930; 94644; J3535; J7611

== ENCOUNTER 2021-09-25 20:52 | Inpatient (IN) | payer OTHER ==
[~2021-09-25] VITALS: Ht 162.6 cm; Wt 60.3 kg
[~2021-09-25 20:52] MED LIST changes: +PRED-554 PO
[2021-09-25] MEDS ORDERED: MethylPREDNISolone SOD SUCC 125 MG/2 ML VIAL IVP ONE (22:30)
[2021-09-25] MEDS ORDERED: ALBUTEROL SULFATE 2.5 MG/0.5 ML NEB SOLUTION NEB ONE (22:30)
[2021-09-25] MEDS ORDERED: IPRATROPIUM BROMIDE 0.5 MG/2.5 ML NEB SOLUTION NEB ONE (22:30)
[2021-09-25] MEDS ORDERED: MAGNESIUM SULFATE 2 GM/WATER 50 ML IV ONE (23:30)
[2021-09-25] MEDS ORDERED: EPINEPHrine 1:1,000 [1 MG/ML] AMP IM ONE (23:30)
[2021-09-25 23:32] LABS: EOSINOPHILS % (AUTO) 6.3 % (1.0-6.0); HEMATOCRIT 44.4 % (36-46); HEMOGLOBIN 14.8 g/dL (12.0-16.0); LYMPHOCYTES # (AUTO) 1.8 K/uL (1.0-4.8); LYMPHOCYTES % (AUTO) 33.5 % (22.0-44.0); MEAN CORPUSCULAR HEMOGLOBIN 28.3 pg (26.0-34.0); MEAN CORPUSCULAR HGB CONC 33.3 G/dL (31.0-37.0); MEAN CORPUSCULAR VOLUME 85 fL (80-100); MONOCYTES # (AUTO) 0.4 K/uL (0.1-1.0); MONOCYTES % (AUTO) 8.1 % (2.0-9.0); NEUTROPHILS # (AUTO) 2.8 K/uL (1.8-7.7); NEUTROPHILS % (AUTO) 51.1 % (40.0-70.0); PLATELET COUNT (AUTO) 273 K/uL (150-450); RED BLOOD CELL COUNT(AUTO) 5.22 MIL/uL (4.00-5.20)
[2021-09-25 23:38] LABS: ANION GAP 6 mmol/L (8-16); CALCIUM, TOTAL 9.4 mg/dL (8.8-10.5); CARBON DIOXIDE 29 mmol/L (22-29); CHLORIDE 103 mmol/L (98-107); CREATININE 0.88 mg/dL (0.60-1.30); GLOMERULAR FILTR. RATE CALC > 60 mL/min (>60); GLUCOSE,RANDOM 102 mg/dL (70-110); POTASSIUM 4.5 mmol/L (3.5-5.1); SODIUM SERUM 138 mmol/L (136-145); UREA NITROGEN, BLOOD 16 mg/dL (7-18)
[2021-09-25 23:43] LABS: ALANINE AMINOTRANSFERASE 14 U/L (12-78); ALBUMIN 3.7 g/dL (3.4-5.0); ALKALINE PHOSPHATASE 108 U/L (46-116); ASPARTATE AMINOTRANSFERASE 16 U/L (15-37); BILIRUBIN,TOTAL 0.3 mg/dL (0.1-1.0); TOTAL PROTEIN, SERUM 8.7 g/dL (6.4-8.2)
[2021-09-25 23:53] LABS: B-TYPE NATRIURETIC PEPTIDE 9 pg/mL (0-100)
[2021-09-26] MEDS ORDERED: ALBUTEROL SULFATE HFA 90 MCG/PUFF 8 GM INHALER IH ONE (00:45)
[2021-09-26] MEDS ORDERED: ALBUTEROL SULFATE 5 MG/ML 20 ML NEB SOLN [BULK] NEB ONE ×2 (01:00)
[2021-09-26 03:44] LABS: COVID AG,FIA SOURCE NASAL SWAB
[2021-09-26] MEDS ORDERED: 0.9% SODIUM CHLORIDE 10 ML SYRINGE IVP PRN (05:00)
[2021-09-26] MEDS ORDERED: ACETAMINOPHEN 325 MG TABLET PO PRN ×2 (05:00→09:45)
[2021-09-26] MEDS ORDERED: ONDANSETRON HCL 4 MG/2 ML VIAL IVP PRN ×2 (05:00→09:45)
[2021-09-26] MEDS ORDERED: ALBUTEROL SULFATE 2.5 MG/0.5 ML NEB SOLUTION NEB SCH (08:00)
[2021-09-26] MEDS: IPRATROPIUM BROMIDE 0.5 MG/2.5 ML NEB SOLUTION NEB SCH ×4 (09:02→19:28)
[2021-09-26 09:09] VITALS: BP 130/64
[2021-09-26] MEDS ORDERED: ZOLPIDEM TARTRATE 5 MG TABLET PO PRN (09:45)
[2021-09-26] MEDS ORDERED: BISACODYL 10 MG RECTAL RECTAL SUPPOSITORY PR PRN (09:45)
[2021-09-26] MEDS ORDERED: MAGNESIUM HYDROXIDE SUSPENSION 30 ML UDCUP PO PRN (09:45)
[2021-09-26] MEDS ORDERED: IPRATROPIUM BROMIDE 0.5 MG/2.5 ML NEB SOLUTION NEB PRN (09:45)
[2021-09-26] MEDS ORDERED: MORPHINE SULFATE 2 MG/ML SYRINGE IVP PRN (09:45)
[2021-09-26 11:32] VITALS: BP 133/66
[2021-09-26] MEDS: CefTRIAXone 1 GM/DEXTROSE 50 ML IV SCH (12:25)
[2021-09-26] MEDS: MethylPREDNISolone SOD SUCC 125 MG/2 ML VIAL IVP SCH ×3 (12:30→23:57)
[2021-09-26] MEDS: HYDROCODONE/ACETAMINOPHEN 5-325 MG TABLET PO PRN (12:42)
[2021-09-26] MEDS ORDERED: MAG HYDROX/AL HYDROX/SIMETH 30 ML SUSP UDCUP PO PRN (15:00)
[2021-09-26 15:56] VITALS: BP 123/64
[2021-09-26] MEDS: BENZONATATE 100 MG CAPSULE PO SCH ×2 (16:43→21:02)
[2021-09-26 20:44] VITALS: BP 126/76
[2021-09-26 22:26] LABS: GLUCOMETER DEV NAME(LOC) 5N.1C; GLUCOSE,POINT OF CARE 271 MG/DL (70-110)
[2021-09-27] VITALS: BP 122/60
[2021-09-27] MEDS: IPRATROPIUM BROMIDE 0.5 MG/2.5 ML NEB SOLUTION NEB SCH ×2 (02:00→07:29)
[2021-09-27 04:55] VITALS: BP 110/65
[2021-09-27] MEDS: MethylPREDNISolone SOD SUCC 125 MG/2 ML VIAL IVP SCH (06:23)
[2021-09-27 07:53] VITALS: BP 114/78
[2021-09-27 08:26] LABS: GLUCOMETER DEV NAME(LOC) 5N.3; GLUCOSE,POINT OF CARE 142 MG/DL (70-110)
[2021-09-27] MEDS: HYDROCODONE/ACETAMINOPHEN 5-325 MG TABLET PO PRN (09:00)
[2021-09-27] MEDS ORDERED: PANTOPRAZOLE SODIUM 40 MG DR TABLET PO SCH (09:00)
[2021-09-27] MEDS: BENZONATATE 100 MG CAPSULE PO SCH (09:00)
[2021-09-27] MEDS: CefTRIAXone 1 GM/DEXTROSE 50 ML IV SCH (10:15)
[2021-09-27] MEDS ORDERED: FLUT1BLS8 IH (11:58)
[2021-09-27] MEDS ORDERED: ALBU8HFA IH (11:58)
[2021-09-27] MEDS ORDERED: PRED-554 PO (11:58)
== END 2021-09-27 13:40 | disposition home or self-care (01) | DRG 133 ==
LOC: EMS 20:59 → 5S 09-26 06:14
PROVIDERS: ADMIT Hospitalist; ATTEND Hospitalist
DX: J96.00 Acute respiratory failure, unspecified whether with hypoxia or hypercapnia (principal); J45.901 Unspecified asthma with (acute) exacerbation; J44.9 Chronic obstructive pulmonary disease, unspecified; E11.9 Type 2 diabetes mellitus without complications; D64.9 Anemia, unspecified; F12.90 Cannabis use, unspecified, uncomplicated; E78.5 Hyperlipidemia, unspecified; F17.210 Nicotine dependence, cigarettes, uncomplicated; Z20.822 Contact with and (suspected) exposure to COVID-19; Z79.899 Other long term (current) drug therapy
CPT/HCPCS: 71045; 80053; 82962; 83880; 84484; 85025; 93005; 94640; 94644; 99285; J0171; J0696; J2270; J2930; J3475; J3535; 36415-L1; 36415-TC; J7611; J7613

== ENCOUNTER 2022-03-13 23:13 | Emergency (ER) | payer OTHER ==
[~2022-03-13] VITALS: Ht 167.6 cm; Wt 78.0 kg
[2022-03-14] MEDS ORDERED: FLUT16H NASAL (00:56)
[2022-03-14] MEDS ORDERED: CLOB15CR10 TP (00:56)
[2022-03-14] MEDS ORDERED: CEPH-558 PO (00:56)
[2022-03-14] MEDS ORDERED: IBUP-1554 PO (00:56)
[2022-03-14 01:00] VITALS: BP 135/71
== END 2022-03-14 01:44 | disposition home or self-care (01) ==
LOC: EMS 23:13
DX: J32.9 Chronic sinusitis, unspecified (principal); R51.9 Headache, unspecified; L23.9 Allergic contact dermatitis, unspecified cause; J45.909 Unspecified asthma, uncomplicated; F17.210 Nicotine dependence, cigarettes, uncomplicated; F12.90 Cannabis use, unspecified, uncomplicated; Z88.8 Allergy status to other drugs, medicaments and biological substances; Z79.82 Long term (current) use of aspirin; Z79.899 Other long term (current) drug therapy
CPT/HCPCS: 99282; Z7502

== ENCOUNTER 2022-03-16 08:25 | Emergency (ER) | payer OTHER ==
[~2022-03-16] VITALS: Ht 4.2 cm; Wt 61.0 kg
[~2022-03-16 08:25] MED LIST changes: +CEPH-558 PO; +CLOB15CR10 TP; +FLUT16H NASAL; +IBUP-1554 PO
[2022-03-16] MEDS ORDERED: DOXY-354 PO (08:41)
[2022-03-16] MEDS ORDERED: ALBUTEROL SULFATE 5 MG/ML 20 ML NEB SOLN [BULK] NEB ONE (08:45)
[2022-03-16] MEDS ORDERED: PredniSONE 20 MG TABLET PO ONE (08:45)
[2022-03-16] MEDS ORDERED: 0.9% SODIUM CHLORIDE 5 ML NEB SOLUTION NEB ONE (08:45)
[2022-03-16] MEDS ORDERED: IPRATROPIUM BROMIDE 0.5 MG/2.5 ML NEB SOLUTION NEB ONE (08:45)
[2022-03-16 10:31] VITALS: BP 121/63
[2022-03-16] MEDS ORDERED: PRED-554 PO (10:42)
[2022-03-16] MEDS ORDERED: ALBUTEROL SULFATE HFA 90 MCG/PUFF 8 GM INHALER IH ONE (10:45)
== END 2022-03-16 11:03 | disposition home or self-care (01) ==
LOC: EMS 08:25
DX: J45.909 Unspecified asthma, uncomplicated (principal); F17.210 Nicotine dependence, cigarettes, uncomplicated; Z88.8 Allergy status to other drugs, medicaments and biological substances
CPT/HCPCS: 99285; 94644; J7512; J3535

== ENCOUNTER 2022-03-24 22:20 | Inpatient (IN) | payer OTHER ==
[~2022-03-24] VITALS: Ht 162.6 cm; Wt 70.8 kg
[~2022-03-24 22:20] MED LIST changes: -CEPH-558 PO; -CLOB15CR10 TP; +DOXY-354 PO; -FLUT16H NASAL; -FLUT1BLS8 IH
[2022-03-24] MEDS ORDERED: IPRATROPIUM BROMIDE 0.5 MG/2.5 ML NEB SOLUTION NEB ONE (23:30)
[2022-03-24] MEDS ORDERED: ALBUTEROL SULFATE 2.5 MG/0.5 ML NEB SOLUTION NEB ONE (23:30)
[2022-03-24] MEDS ORDERED: ALBUTEROL SULFATE 5 MG/ML 20 ML NEB SOLN [BULK] NEB ONE (23:30)
[2022-03-24] MEDS ORDERED: MethylPREDNISolone SOD SUCC 125 MG/2 ML VIAL IM ONE (23:30)
[2022-03-24] MEDS ORDERED: 0.9% SODIUM CHLORIDE 5 ML NEB SOLUTION NEB ONE (23:33)
[2022-03-25 00:30] LABS: BASOPHILS % (AUTO) 0.5 % (0.0-2.0); EOSINOPHILS % (AUTO) 6.5 % (1.0-6.0); HEMOGLOBIN 12.7 g/dL (12.0-16.0); LYMPHOCYTES # (AUTO) 2.7 K/uL (1.0-4.8); LYMPHOCYTES % (AUTO) 38.5 % (22.0-44.0); MEAN CORPUSCULAR HEMOGLOBIN 27.2 pg (26.0-34.0); MEAN CORPUSCULAR HGB CONC 32.7 G/dL (31.0-37.0); MEAN CORPUSCULAR VOLUME 83 fL (80-100); MONOCYTES # (AUTO) 0.5 K/uL (0.1-1.0); MONOCYTES % (AUTO) 7.5 % (2.0-9.0); NEUTROPHILS # (AUTO) 3.3 K/uL (1.8-7.7); PLATELET COUNT (AUTO) 250 K/uL (150-450); RED BLOOD CELL COUNT(AUTO) 4.68 MIL/uL (4.00-5.20); RED CELL DISTRIBUTION WIDTH 15.5 % (11.5-14.5)
[2022-03-25 00:39] LABS: ANION GAP 6 mmol/L (8-16); CALCIUM, TOTAL 9.2 mg/dL (8.8-10.5); CARBON DIOXIDE 32 mmol/L (22-29); CHLORIDE 102 mmol/L (98-107); CREATININE 1.01 mg/dL (0.60-1.30); GLUCOSE,RANDOM 103 mg/dL (70-110); POTASSIUM 4.2 mmol/L (3.5-5.1); SODIUM SERUM 140 mmol/L (136-145); UREA NITROGEN, BLOOD 14 mg/dL (7-18)
[2022-03-25 00:48] LABS: ALANINE AMINOTRANSFERASE 16 U/L (12-78); ALBUMIN 3.4 g/dL (3.4-5.0); ALKALINE PHOSPHATASE 101 U/L (46-116); ASPARTATE AMINOTRANSFERASE 15 U/L (15-37); BILIRUBIN,TOTAL 0.2 mg/dL (0.1-1.0); TOTAL PROTEIN, SERUM 7.6 g/dL (6.4-8.2)
[2022-03-25 00:50] LABS: GLOMERULAR FILTR. RATE CALC > 60 mL/min (>60)
[2022-03-25] MEDS ORDERED: EPINEPHrine 1:1,000 [1 MG/ML] VIAL IM ONE (01:45)
[2022-03-25 02:20] LABS: COVID AG,FIA SOURCE NASAL SWAB
[2022-03-25] MEDS ORDERED: ALBUTEROL SULFATE 2.5 MG/0.5 ML NEB SOLUTION NEB PRN ×2 (04:30→10:30)
[2022-03-25] MEDS ORDERED: IPRATROPIUM BROMIDE 0.5 MG/2.5 ML NEB SOLUTION NEB PRN ×2 (04:30→10:30)
[2022-03-25 04:50] VITALS: BP 136/89
[2022-03-25 07:23] VITALS: BP 105/67
[2022-03-25] MEDS ORDERED: MORPHINE SULFATE 2 MG/ML SYRINGE IVP PRN (10:30)
[2022-03-25] MEDS ORDERED: BISACODYL 10 MG RECTAL RECTAL SUPPOSITORY PR PRN (10:30)
[2022-03-25] MEDS ORDERED: MAGNESIUM HYDROXIDE SUSPENSION 30 ML UDCUP PO PRN (10:30)
[2022-03-25] MEDS ORDERED: HYDROCODONE/ACETAMINOPHEN 5-325 MG TABLET PO PRN (10:30)
[2022-03-25 11:00] VITALS: BP 128/67
[2022-03-25 12:06] LABS: GLUCOMETER DEV NAME(LOC) 5N.1C; GLUCOSE,POINT OF CARE 213 MG/DL (70-110)
[2022-03-25] MEDS ORDERED: SODIUM CHLORIDE 0.9% 500 ML IV ONE (12:59)
[2022-03-25] MEDS: MethylPREDNISolone SOD SUCC 125 MG/2 ML VIAL IVP SCH ×3 (13:04→23:35)
[2022-03-25] MEDS: AZITHROMYCIN 500 MG/NS 250 ML IV SCH (13:05)
[2022-03-25] MEDS: ALBUTEROL SULFATE 2.5 MG/0.5 ML NEB SOLUTION NEB SCH ×2 (13:15→20:32)
[2022-03-25] MEDS: IPRATROPIUM BROMIDE 0.5 MG/2.5 ML NEB SOLUTION NEB SCH ×2 (13:15→20:32)
[2022-03-25] MEDS: ONDANSETRON HCL 4 MG/2 ML VIAL IVP PRN (13:37)
[2022-03-25 15:02] VITALS: BP 125/72
[2022-03-25 15:19] LABS: ABG BASE EXCESS -0.8 mmol/L (-2.0-3.0); ABG HCO3 23.7 mmol/L (22.0-26.0); ABG METHEMOGLOBIN 0.4 % (0.0-1.5); ABG OXYGEN SATURATION 94.3 % (95.0-98.0); ABG OXYHEMOGLOBIN 93.9 % (94.0-100.0); ABG PCO2 41 mmHg (35-45); ABG PH 7.386 (7.35-7.450); ABG TOTAL HEMOGLOBIN 13.6 G/dL (12.0-18.0); SOURCE, BLOOD GAS ARTERIAL; TEMPERATURE, FAHRENHEIT, BG 97.8 FAHREN (96.0-98.6)
[2022-03-25 15:45] LABS: ABG A-A DIFF O2 23.4 mmHg (10-20.0); SITE, BLOOD GAS LFT RADIAL
[2022-03-25 15:46] LABS: O2 DEVICE,BLOOD GAS ROOM AIR (ROOM AIR)
[2022-03-25] MEDS: BENZONATATE 100 MG CAPSULE PO SCH ×2 (15:50→21:18)
[2022-03-25] MEDS: CefTRIAXone 1 GM/DEXTROSE 50 ML IV SCH (15:50)
[2022-03-25 19:56] LABS: GLUCOMETER DEV NAME(LOC) 5S.2B; GLUCOSE,POINT OF CARE 121 MG/DL (70-110)
[2022-03-25 20:51] VITALS: BP 113/66
[2022-03-25 22:16] LABS: GLUCOMETER DEV NAME(LOC) 5N.1C; GLUCOSE,POINT OF CARE 214 MG/DL (70-110)
[2022-03-26 00:07] VITALS: BP 127/65
[2022-03-26] MEDS: ALBUTEROL SULFATE 2.5 MG/0.5 ML NEB SOLUTION NEB SCH ×4 (01:13→20:22)
[2022-03-26] MEDS: IPRATROPIUM BROMIDE 0.5 MG/2.5 ML NEB SOLUTION NEB SCH ×4 (01:13→20:17)
[2022-03-26 05:18] VITALS: BP 127/65
[2022-03-26] MEDS: MethylPREDNISolone SOD SUCC 125 MG/2 ML VIAL IVP SCH ×3 (06:19→18:03)
[2022-03-26 07:27] VITALS: BP 134/61
[2022-03-26] MEDS: PANTOPRAZOLE SODIUM 40 MG DR TABLET PO SCH (08:44)
[2022-03-26] MEDS: BENZONATATE 100 MG CAPSULE PO SCH ×3 (08:45→20:58)
[2022-03-26 10:06] LABS: GLUCOMETER DEV NAME(LOC) 5N.1C; GLUCOSE,POINT OF CARE 148 MG/DL (70-110)
[2022-03-26 11:15] VITALS: BP 123/61
[2022-03-26 11:36] LABS: GLUCOMETER DEV NAME(LOC) 5S.2B; GLUCOSE,POINT OF CARE 127 MG/DL (70-110)
[2022-03-26] MEDS: AZITHROMYCIN 500 MG/NS 250 ML IV SCH (12:05)
[2022-03-26] MEDS: CefTRIAXone 1 GM/DEXTROSE 50 ML IV SCH (12:25)
[2022-03-26 16:02] VITALS: BP 132/64
[2022-03-26 18:06] LABS: GLUCOMETER DEV NAME(LOC) 5S.2B; GLUCOSE,POINT OF CARE 112 MG/DL (70-110)
[2022-03-26 19:20] VITALS: BP 124/64
[2022-03-26] MEDS: BUDESONIDE 0.5 MG/2 ML NEB SOLUTION NEB SCH (20:18)
[2022-03-26 20:41] LABS: GLUCOMETER DEV NAME(LOC) 5S.2B; GLUCOSE,POINT OF CARE 195 MG/DL (70-110)
[2022-03-26] MEDS: ACETAMINOPHEN 325 MG TABLET PO PRN (20:57)
[2022-03-27 00:10] VITALS: BP 116/60
[2022-03-27] MEDS: MethylPREDNISolone SOD SUCC 125 MG/2 ML VIAL IVP SCH ×5 (00:36→23:51)
[2022-03-27] MEDS: ALBUTEROL SULFATE 2.5 MG/0.5 ML NEB SOLUTION NEB SCH ×4 (02:12→20:15)
[2022-03-27] MEDS: IPRATROPIUM BROMIDE 0.5 MG/2.5 ML NEB SOLUTION NEB SCH ×4 (02:12→20:15)
[2022-03-27 04:10] VITALS: BP 108/63
[2022-03-27 06:06] LABS: GLUCOMETER DEV NAME(LOC) 5S.2B; GLUCOSE,POINT OF CARE 141 MG/DL (70-110)
[2022-03-27] MEDS: BUDESONIDE 0.5 MG/2 ML NEB SOLUTION NEB SCH ×2 (07:24→20:15)
[2022-03-27] MEDS: PANTOPRAZOLE SODIUM 40 MG DR TABLET PO SCH (08:49)
[2022-03-27] MEDS: BENZONATATE 100 MG CAPSULE PO SCH ×3 (08:49→20:39)
[2022-03-27] MEDS: AZITHROMYCIN 500 MG/NS 250 ML IV SCH (10:02)
[2022-03-27 11:51] LABS: GLUCOMETER DEV NAME(LOC) 5N.1C; GLUCOSE,POINT OF CARE 120 MG/DL (70-110)
[2022-03-27] MEDS: CefTRIAXone 1 GM/DEXTROSE 50 ML IV SCH (12:19)
[2022-03-27 17:21] LABS: GLUCOMETER DEV NAME(LOC) 5S.1B; GLUCOSE,POINT OF CARE 139 MG/DL (70-110)
[2022-03-27] MEDS: ACETAMINOPHEN 325 MG TABLET PO PRN (20:38)
[2022-03-27 20:41] LABS: GLUCOMETER DEV NAME(LOC) 5S.1B; GLUCOSE,POINT OF CARE 199 MG/DL (70-110)
[2022-03-27 21:31] VITALS: BP 115/71
[2022-03-28 00:14] VITALS: BP 122/69
[2022-03-28] MEDS: IPRATROPIUM BROMIDE 0.5 MG/2.5 ML NEB SOLUTION NEB SCH ×4 (02:24→19:47)
[2022-03-28] MEDS: ALBUTEROL SULFATE 2.5 MG/0.5 ML NEB SOLUTION NEB SCH ×4 (02:24→19:47)
[2022-03-28] MEDS: MethylPREDNISolone SOD SUCC 125 MG/2 ML VIAL IVP SCH ×4 (05:40→23:45)
[2022-03-28 06:21] VITALS: BP 109/66
[2022-03-28 06:22] LABS: GLUCOMETER DEV NAME(LOC) 5S.1B; GLUCOSE,POINT OF CARE 125 MG/DL (70-110)
[2022-03-28 08:17] VITALS: BP 146/82
[2022-03-28] MEDS: BUDESONIDE 0.5 MG/2 ML NEB SOLUTION NEB SCH ×2 (08:52→20:01)
[2022-03-28] MEDS: BENZONATATE 100 MG CAPSULE PO SCH ×3 (09:25→20:40)
[2022-03-28] MEDS: PANTOPRAZOLE SODIUM 40 MG DR TABLET PO SCH (09:25)
[2022-03-28] MEDS: AZITHROMYCIN 500 MG/NS 250 ML IV SCH (11:20)
[2022-03-28 11:31] VITALS: BP 131/68
[2022-03-28 12:01] LABS: GLUCOMETER DEV NAME(LOC) 5S.1B; GLUCOSE,POINT OF CARE 175 MG/DL (70-110)
[2022-03-28] MEDS: CefTRIAXone 1 GM/DEXTROSE 50 ML IV SCH (12:18)
[2022-03-28 16:23] VITALS: BP 121/75
[2022-03-28 16:42] LABS: GLUCOMETER DEV NAME(LOC) 5N.1C; GLUCOSE,POINT OF CARE 165 MG/DL (70-110)
[2022-03-28 20:33] VITALS: BP 123/68
[2022-03-29 00:32] VITALS: BP 123/68
[2022-03-29] MEDS: ALBUTEROL SULFATE 2.5 MG/0.5 ML NEB SOLUTION NEB SCH ×4 (02:10→20:05)
[2022-03-29] MEDS: IPRATROPIUM BROMIDE 0.5 MG/2.5 ML NEB SOLUTION NEB SCH ×4 (02:42→20:05)
[2022-03-29 04:28] VITALS: BP 125/74
[2022-03-29 06:06] LABS: GLUCOMETER DEV NAME(LOC) 5S.1B; GLUCOSE,POINT OF CARE 131 MG/DL (70-110)
[2022-03-29] MEDS: MethylPREDNISolone SOD SUCC 125 MG/2 ML VIAL IVP SCH ×3 (06:13→17:19)
[2022-03-29 07:20] VITALS: BP 119/68
[2022-03-29] MEDS: BUDESONIDE 0.5 MG/2 ML NEB SOLUTION NEB SCH ×2 (08:13→20:05)
[2022-03-29] MEDS: BENZONATATE 100 MG CAPSULE PO SCH ×3 (09:29→20:29)
[2022-03-29] MEDS: PANTOPRAZOLE SODIUM 40 MG DR TABLET PO SCH (09:29)
[2022-03-29 11:02] VITALS: BP 125/73
[2022-03-29] MEDS: CefTRIAXone 1 GM/DEXTROSE 50 ML IV SCH (11:55)
[2022-03-29] MEDS: AZITHROMYCIN 500 MG/NS 250 ML IV SCH (11:56)
[2022-03-29 15:11] LABS: GLUCOMETER DEV NAME(LOC) 5S.1B; GLUCOSE,POINT OF CARE 126 MG/DL (70-110)
[2022-03-29 15:32] VITALS: BP 119/67
[2022-03-29] MEDS: ACETAMINOPHEN 325 MG TABLET PO PRN (19:08)
[2022-03-29 19:46] VITALS: BP 138/79
[2022-03-29 20:46] LABS: GLUCOMETER DEV NAME(LOC) 5S.1B; GLUCOSE,POINT OF CARE 128 MG/DL (70-110)
[2022-03-29 22:22] LABS: GLUCOMETER DEV NAME(LOC) 5S.1B; GLUCOSE,POINT OF CARE 212 MG/DL (70-110)
[2022-03-30] VITALS (7 sets, daily range): BP systolic 121–145; BP diastolic 64–80
[2022-03-30] MEDS: MethylPREDNISolone SOD SUCC 125 MG/2 ML VIAL IVP SCH ×5 (00:02→23:54)
[2022-03-30] MEDS: IPRATROPIUM BROMIDE 0.5 MG/2.5 ML NEB SOLUTION NEB SCH ×4 (03:18→21:12)
[2022-03-30] MEDS: ALBUTEROL SULFATE 2.5 MG/0.5 ML NEB SOLUTION NEB SCH ×4 (03:19→21:11)
[2022-03-30 06:31] LABS: GLUCOMETER DEV NAME(LOC) 5S.1B; GLUCOSE,POINT OF CARE 161 MG/DL (70-110)
[2022-03-30] MEDS: BUDESONIDE 0.5 MG/2 ML NEB SOLUTION NEB SCH ×2 (08:03→21:22)
[2022-03-30] MEDS: PANTOPRAZOLE SODIUM 40 MG DR TABLET PO SCH (08:53)
[2022-03-30] MEDS: BENZONATATE 100 MG CAPSULE PO SCH ×3 (08:54→20:35)
[2022-03-30] MEDS: AZITHROMYCIN 500 MG/NS 250 ML IV SCH (11:22)
[2022-03-30 12:01] LABS: GLUCOMETER DEV NAME(LOC) 5S.1B; GLUCOSE,POINT OF CARE 187 MG/DL (70-110)
[2022-03-30] MEDS: CefTRIAXone 1 GM/DEXTROSE 50 ML IV SCH (13:22)
[2022-03-30] MEDS: INSULIN LISPRO 100 UNITS/ML SQ PRN ×2 (17:40→20:34)
[2022-03-30] MEDS ORDERED: DEXTROSE 50%-WATER 25 GM/50 ML SYRINGE IVP PRN (17:45)
[2022-03-31] MEDS: IPRATROPIUM BROMIDE 0.5 MG/2.5 ML NEB SOLUTION NEB SCH ×4 (02:00→20:18)
[2022-03-31] MEDS: ALBUTEROL SULFATE 2.5 MG/0.5 ML NEB SOLUTION NEB SCH ×4 (02:00→20:18)
[2022-03-31 04:30] VITALS: BP 121/57
[2022-03-31 05:52] LABS: GLUCOMETER DEV NAME(LOC) 5S.2B; GLUCOSE,POINT OF CARE 239 MG/DL (70-110)
[2022-03-31 05:52] LABS: GLUCOMETER DEV NAME(LOC) 5S.1B; GLUCOSE,POINT OF CARE 232 MG/DL (70-110)
[2022-03-31] MEDS: MethylPREDNISolone SOD SUCC 125 MG/2 ML VIAL IVP SCH ×4 (06:22→23:02)
[2022-03-31 06:56] LABS: GLUCOMETER DEV NAME(LOC) 5S.1B; GLUCOSE,POINT OF CARE 140 MG/DL (70-110)
[2022-03-31 07:24] VITALS: BP 122/62
[2022-03-31] MEDS: BUDESONIDE 0.5 MG/2 ML NEB SOLUTION NEB SCH ×2 (09:32→20:19)
[2022-03-31] MEDS: BENZONATATE 100 MG CAPSULE PO SCH ×3 (09:54→20:35)
[2022-03-31] MEDS: AZITHROMYCIN 500 MG/NS 250 ML IV SCH (09:54)
[2022-03-31] MEDS: PANTOPRAZOLE SODIUM 40 MG DR TABLET PO SCH (09:54)
[2022-03-31] MEDS: ACETAMINOPHEN 325 MG TABLET PO PRN (10:01)
[2022-03-31 11:06] VITALS: BP 130/70
[2022-03-31 11:51] LABS: GLUCOMETER DEV NAME(LOC) 5S.1B; GLUCOSE,POINT OF CARE 150 MG/DL (70-110)
[2022-03-31] MEDS: CefTRIAXone 1 GM/DEXTROSE 50 ML IV SCH (12:31)
[2022-03-31] MEDS: ONDANSETRON HCL 4 MG/2 ML VIAL IVP PRN (14:35)
[2022-03-31 15:49] VITALS: BP 127/65
[2022-03-31] MEDS: INSULIN LISPRO 100 UNITS/ML SQ PRN (17:14)
[2022-03-31 19:33] VITALS: BP 141/72
[2022-03-31 20:36] LABS: GLUCOMETER DEV NAME(LOC) 5S.1B; GLUCOSE,POINT OF CARE 277 MG/DL (70-110)
[2022-03-31 20:46] LABS: GLUCOMETER DEV NAME(LOC) 5S.1B; GLUCOSE,POINT OF CARE 156 MG/DL (70-110)
[2022-03-31] MEDS: ZOLPIDEM TARTRATE 5 MG TABLET PO PRN (23:03)
[2022-03-31 23:23] VITALS: BP 140/67
[2022-04-01] VITALS (7 sets, daily range): BP systolic 122–148; BP diastolic 66–88
[2022-04-01] MEDS: IPRATROPIUM BROMIDE 0.5 MG/2.5 ML NEB SOLUTION NEB SCH ×4 (02:00→20:35)
[2022-04-01] MEDS: ALBUTEROL SULFATE 2.5 MG/0.5 ML NEB SOLUTION NEB SCH ×4 (02:00→20:35)
[2022-04-01] MEDS: MethylPREDNISolone SOD SUCC 125 MG/2 ML VIAL IVP SCH ×3 (06:06→17:23)
[2022-04-01 06:31] LABS: GLUCOMETER DEV NAME(LOC) 5S.1B; GLUCOSE,POINT OF CARE 153 MG/DL (70-110)
[2022-04-01] MEDS ORDERED: PRED10TA3 PO (06:43)
[2022-04-01] MEDS ORDERED: BENZ-70 PO (06:43)
[2022-04-01] MEDS ORDERED: ALBU8HFA IH (06:43)
[2022-04-01] MEDS ORDERED: PRED-549 PO (06:43)
[2022-04-01] MEDS: BUDESONIDE 0.5 MG/2 ML NEB SOLUTION NEB SCH ×2 (07:14→20:35)
[2022-04-01] MEDS: PANTOPRAZOLE SODIUM 40 MG DR TABLET PO SCH (08:16)
[2022-04-01] MEDS: BENZONATATE 100 MG CAPSULE PO SCH ×3 (08:17→20:17)
[2022-04-01] MEDS: AZITHROMYCIN 500 MG/NS 250 ML IV SCH (10:44)
[2022-04-01] MEDS: CefTRIAXone 1 GM/DEXTROSE 50 ML IV SCH (12:27)
[2022-04-01 17:51] LABS: GLUCOMETER DEV NAME(LOC) 5S.1B; GLUCOSE,POINT OF CARE 131 MG/DL (70-110)
[2022-04-01 17:51] LABS: GLUCOMETER DEV NAME(LOC) 5S.1B; GLUCOSE,POINT OF CARE 159 MG/DL (70-110)
[2022-04-01] MEDS: INSULIN LISPRO 100 UNITS/ML SQ PRN (20:20)
[2022-04-01] MEDS: ZOLPIDEM TARTRATE 5 MG TABLET PO PRN (22:25)
[2022-04-02] MEDS: MethylPREDNISolone SOD SUCC 125 MG/2 ML VIAL IVP SCH ×5 (00:04→23:14)
[2022-04-02] MEDS: IPRATROPIUM BROMIDE 0.5 MG/2.5 ML NEB SOLUTION NEB SCH ×4 (02:00→22:27)
[2022-04-02] MEDS: ALBUTEROL SULFATE 2.5 MG/0.5 ML NEB SOLUTION NEB SCH ×4 (02:00→22:25)
[2022-04-02 03:51] LABS: GLUCOMETER DEV NAME(LOC) 5S.1B; GLUCOSE,POINT OF CARE 215 MG/DL (70-110)
[2022-04-02 05:19] VITALS: BP 134/68
[2022-04-02 06:57] LABS: GLUCOMETER DEV NAME(LOC) 6N.1; GLUCOSE,POINT OF CARE 154 MG/DL (70-110)
[2022-04-02] MEDS: BUDESONIDE 0.5 MG/2 ML NEB SOLUTION NEB SCH ×2 (07:24→22:26)
[2022-04-02 08:17] VITALS: BP 120/68
[2022-04-02] MEDS: BENZONATATE 100 MG CAPSULE PO SCH ×3 (08:28→20:55)
[2022-04-02] MEDS: PANTOPRAZOLE SODIUM 40 MG DR TABLET PO SCH (08:28)
[2022-04-02] MEDS: ACETAMINOPHEN 325 MG TABLET PO PRN (08:28)
[2022-04-02] MEDS ORDERED: SODIUM CHLORIDE 0.9% 250 ML IV ONE (11:37)
[2022-04-02] MEDS: INSULIN LISPRO 100 UNITS/ML SQ PRN ×3 (11:53→20:54)
[2022-04-02] MEDS: CefTRIAXone 1 GM/DEXTROSE 50 ML IV SCH (11:54)
[2022-04-02] MEDS: AZITHROMYCIN 500 MG/NS 250 ML IV SCH (12:40)
[2022-04-02 15:16] LABS: GLUCOMETER DEV NAME(LOC) 6N.1; GLUCOSE,POINT OF CARE 157 MG/DL (70-110)
[2022-04-02 18:07] LABS: GLUCOMETER DEV NAME(LOC) 6N.1; GLUCOSE,POINT OF CARE 233 MG/DL (70-110)
[2022-04-02] MEDS: ONDANSETRON HCL 4 MG/2 ML VIAL IVP PRN (18:23)
[2022-04-02 19:52] VITALS: BP 119/66
[2022-04-02 21:01] LABS: GLUCOMETER DEV NAME(LOC) 6N.1; GLUCOSE,POINT OF CARE 206 MG/DL (70-110)
[2022-04-03] MEDS: ALBUTEROL SULFATE 2.5 MG/0.5 ML NEB SOLUTION NEB SCH ×4 (02:59→20:14)
[2022-04-03] MEDS: IPRATROPIUM BROMIDE 0.5 MG/2.5 ML NEB SOLUTION NEB SCH ×4 (02:59→20:14)
[2022-04-03] MEDS: ZOLPIDEM TARTRATE 5 MG TABLET PO PRN ×2 (02:59→21:18)
[2022-04-03 03:01] VITALS: BP 151/85
[2022-04-03] MEDS: MethylPREDNISolone SOD SUCC 125 MG/2 ML VIAL IVP SCH (05:50)
[2022-04-03 07:01] LABS: GLUCOMETER DEV NAME(LOC) 6N.1; GLUCOSE,POINT OF CARE 158 MG/DL (70-110)
[2022-04-03 07:22] VITALS: BP 142/73
[2022-04-03] MEDS: BUDESONIDE 0.5 MG/2 ML NEB SOLUTION NEB SCH ×2 (07:59→20:14)
[2022-04-03] MEDS: PANTOPRAZOLE SODIUM 40 MG DR TABLET PO SCH (08:08)
[2022-04-03] MEDS: BENZONATATE 100 MG CAPSULE PO SCH ×3 (08:10→21:18)
[2022-04-03] MEDS ORDERED: MethylPREDNISolone SOD SUCC 40 MG/ML VIAL IVP SCH (12:00)
[2022-04-03] MEDS: INSULIN LISPRO 100 UNITS/ML SQ PRN ×3 (12:03→21:19)
[2022-04-03] MEDS: PredniSONE 10 MG TABLET PO SCH (12:06)
[2022-04-03 12:51] LABS: GLUCOMETER DEV NAME(LOC) 6N.2B; GLUCOSE,POINT OF CARE 226 MG/DL (70-110)
[2022-04-03 15:38] VITALS: BP 141/83
[2022-04-03 19:01] LABS: GLUCOMETER DEV NAME(LOC) 6N.2B; GLUCOSE,POINT OF CARE 227 MG/DL (70-110)
[2022-04-03 19:48] VITALS: BP 144/70
[2022-04-04 00:22] LABS: GLUCOMETER DEV NAME(LOC) 6N.2B; GLUCOSE,POINT OF CARE 162 MG/DL (70-110)
[2022-04-04] MEDS: ALBUTEROL SULFATE 2.5 MG/0.5 ML NEB SOLUTION NEB SCH ×4 (01:53→20:18)
[2022-04-04] MEDS: IPRATROPIUM BROMIDE 0.5 MG/2.5 ML NEB SOLUTION NEB SCH ×4 (01:54→20:18)
[2022-04-04 05:30] VITALS: BP 131/93
[2022-04-04 07:29] VITALS: BP 136/71
[2022-04-04 07:51] LABS: GLUCOMETER DEV NAME(LOC) 6N.2B; GLUCOSE,POINT OF CARE 104 MG/DL (70-110)
[2022-04-04] MEDS: BUDESONIDE 0.5 MG/2 ML NEB SOLUTION NEB SCH ×2 (07:57→20:29)
[2022-04-04] MEDS: PANTOPRAZOLE SODIUM 40 MG DR TABLET PO SCH (08:12)
[2022-04-04] MEDS: BENZONATATE 100 MG CAPSULE PO SCH ×3 (08:13→19:48)
[2022-04-04] MEDS: PredniSONE 10 MG TABLET PO SCH (08:14)
[2022-04-04] MEDS: ONDANSETRON HCL 4 MG/2 ML VIAL IVP PRN (08:30)
[2022-04-04] MEDS: INSULIN LISPRO 100 UNITS/ML SQ PRN (12:25)
[2022-04-04 12:56] LABS: GLUCOMETER DEV NAME(LOC) 6N.2B; GLUCOSE,POINT OF CARE 156 MG/DL (70-110)
[2022-04-04 15:20] VITALS: BP 139/76
[2022-04-04 19:30] VITALS: BP 127/71
[2022-04-04 19:51] LABS: GLUCOMETER DEV NAME(LOC) 6N.2B; GLUCOSE,POINT OF CARE 138 MG/DL (70-110)
[2022-04-04 20:16] LABS: GLUCOMETER DEV NAME(LOC) 6N.1; GLUCOSE,POINT OF CARE 135 MG/DL (70-110)
[2022-04-05] MEDS: ZOLPIDEM TARTRATE 5 MG TABLET PO PRN (02:04)
[2022-04-05] MEDS: IPRATROPIUM BROMIDE 0.5 MG/2.5 ML NEB SOLUTION NEB SCH ×2 (02:11→08:04)
[2022-04-05] MEDS: ALBUTEROL SULFATE 2.5 MG/0.5 ML NEB SOLUTION NEB SCH ×2 (02:11→08:04)
[2022-04-05 02:56] LABS: GLUCOMETER DEV NAME(LOC) 6N.2B; GLUCOSE,POINT OF CARE 142 MG/DL (70-110)
[2022-04-05 04:05] VITALS: BP 131/75
[2022-04-05 07:11] LABS: GLUCOMETER DEV NAME(LOC) 6N.2B; GLUCOSE,POINT OF CARE 78 MG/DL (70-110)
[2022-04-05] MEDS: BUDESONIDE 0.5 MG/2 ML NEB SOLUTION NEB SCH (08:19)
[2022-04-05 08:41] VITALS: BP 130/62
[2022-04-05] MEDS: ACETAMINOPHEN 325 MG TABLET PO PRN (09:26)
[2022-04-05] MEDS: PANTOPRAZOLE SODIUM 40 MG DR TABLET PO SCH (09:27)
[2022-04-05] MEDS: PredniSONE 10 MG TABLET PO SCH (09:27)
[2022-04-05] MEDS: BENZONATATE 100 MG CAPSULE PO SCH (09:27)
== END 2022-04-05 13:04 | disposition home or self-care (01) | DRG 133 ==
LOC: EMS 22:32 → 5N 03-25 04:25 → 6S 04-01 21:35
PROVIDERS: ADMIT Hospitalist; ATTEND Internal Medicine
DX: J96.01 Acute respiratory failure with hypoxia (principal); J45.902 Unspecified asthma with status asthmaticus; E11.9 Type 2 diabetes mellitus without complications; F17.200 Nicotine dependence, unspecified, uncomplicated; Z79.899 Other long term (current) drug therapy; Z88.8 Allergy status to other drugs, medicaments and biological substances; Z91.040 Latex allergy status; Z91.018 Allergy to other foods; Z59.00 Homelessness unspecified; Z20.822 Contact with and (suspected) exposure to COVID-19
CPT/HCPCS: 36600; 70486; 71046; 80053; 82805; 82962; 85025; 94640; 99285; J0171; J0456; J0696; J2405; J2930; J7040; J7050; 36415-L1; 36415-TC; J7512; J7611; J7613; Z7610

== ENCOUNTER 2023-07-20 06:54 | Emergency (ER) | payer OTHER ==
[~2023-07-20] VITALS: Ht 162.6 cm; Wt 64.6 kg
[~2023-07-20 06:54] MED LIST changes: +ALBU18HF12 IH; -ALBU8HFA IH; +BENZ-227 PO; -DOXY-354 PO; -IBUP-1554 PO; -PRED-554 PO
[2023-07-20] MEDS ORDERED: KETOROLAC TROMETHAMINE 30 MG/ML VIAL IVP ONE (07:30)
[2023-07-20] MEDS ORDERED: SODIUM CHLORIDE 0.9% 1,000 ML IV ONE (07:30)
[2023-07-20 08:11] LABS: COVID AG,FIA SOURCE NASAL SWAB
[2023-07-20] MEDS ORDERED: IPRATROPIUM BROMIDE 0.5 MG/2.5 ML NEB SOLUTION NEB ONE (08:15)
[2023-07-20] MEDS ORDERED: ALBUTEROL SULFATE 2.5 MG/0.5 ML NEB SOLUTION NEB ONE (08:15)
[2023-07-20 08:20] VITALS: PULSE 91; RESP 24; O2SAT 97
[2023-07-20 08:33] VITALS: PULSE 89; RESP 22; O2SAT 100
[2023-07-20 08:34] LABS: INFLUENZA TYPE A NEGATIVE FOR TYPE A (NEGATIVE); INFLUENZA TYPE B NEGATIVE FOR TYPE B (NEGATIVE)
[2023-07-20 09:13] LABS: SARS-COV2 (COVID) ANTIGEN,FIA Positive (Negative)
[2023-07-20 09:35] VITALS: TEMP 99.8
[2023-07-20] MEDS ORDERED: AZIT250T9 PO (09:39)
[2023-07-20] MEDS ORDERED: IBUP-1492 PO (09:39)
[2023-07-20 10:15] VITALS: BP 155/72; PULSE 90; RESP 22
== END 2023-07-20 10:15 | disposition home or self-care (01) ==
LOC: EMS 06:54
DX: U07.1 COVID-19 (principal); C30.0 Malignant neoplasm of nasal cavity; J45.901 Unspecified asthma with (acute) exacerbation; J32.9 Chronic sinusitis, unspecified; F41.9 Anxiety disorder, unspecified; F32.A Depression, unspecified; E11.9 Type 2 diabetes mellitus without complications; F17.210 Nicotine dependence, cigarettes, uncomplicated; F12.90 Cannabis use, unspecified, uncomplicated
CPT/HCPCS: 99285; 96374; 96361; 87426; 87804; 94640; J1885; J7030; J7613

== ENCOUNTER → 2024-04-02 | Emergency (ER) | payer OTHER ==
[~2024-04-02] VITALS: Ht 160 cm; Wt 60.9 kg
[~2024-04-02] MED LIST changes: +IBUP-1492 PO
[2024-04-02 18:32] VITALS: TEMP 98.2
[2024-04-02 20:40] VITALS: BP 128/79
[2024-04-02 21:30] VITALS: PULSE 86; RESP 20; O2SAT 100
[2024-04-02] MEDS: ALBUTEROL SULFATE 2.5 MG/0.5 ML NEB SOLUTION NEB ONE (21:30)
[2024-04-02] MEDS: IPRATROPIUM BROMIDE 0.5 MG/2.5 ML NEB SOLUTION NEB ONE (21:30)
[2024-04-02] MEDS: MethylPREDNISolone SOD SUCC 125 MG/2 ML VIAL IVP ONE (21:36)
[2024-04-02 21:38] LABS: BASOPHILS % (AUTO) 0.4 % (0.0-2.0); EOSINOPHILS % (AUTO) 1.6 % (1.0-6.0); HEMATOCRIT 38.2 % (36-46); LYMPHOCYTES # (AUTO) 1.9 K/uL (1.0-4.8); LYMPHOCYTES % (AUTO) 20.2 % (22.0-44.0); MEAN CORPUSCULAR HEMOGLOBIN 28.4 pg (26.0-34.0); MEAN CORPUSCULAR HGB CONC 31.5 G/dL (31.0-37.0); MEAN CORPUSCULAR VOLUME 90 fL (80-100); MONOCYTES # (AUTO) 0.6 K/uL (0.1-1.0); MONOCYTES % (AUTO) 6.1 % (2.0-9.0); NEUTROPHILS # (AUTO) 6.7 K/uL (1.8-7.7); NEUTROPHILS % (AUTO) 71.7 % (40.0-70.0); PLATELET COUNT (AUTO) 333 K/uL (150-450); RED BLOOD CELL COUNT(AUTO) 4.25 MIL/uL (4.00-5.20); WHITE BLOOD COUNT (AUTO) 9.3 K/uL (4.5-11.0)
[2024-04-02 21:44] LABS: ANION GAP 11 mmol/L (8-16); CALCIUM, TOTAL 8.3 mg/dL (8.8-10.5); CARBON DIOXIDE 26 mmol/L (22-29); CHLORIDE 103 mmol/L (98-107); GLOMERULAR FILTR. RATE CALC > 60 mL/min (>60); GLUCOSE,RANDOM 110 mg/dL (70-110); POTASSIUM 4.1 mmol/L (3.5-5.1); SODIUM SERUM 140 mmol/L (136-145); UREA NITROGEN, BLOOD 12 mg/dL (7-18)
[2024-04-02 21:45] VITALS: PULSE 81; RESP 20; O2SAT 100
[2024-04-02 21:54] LABS: TROPONIN I-HIGH SENSITIVITY 4 ng/L (<51)
[2024-04-02 22:02] LABS: B-TYPE NATRIURETIC PEPTIDE 19 pg/mL (0-100)
[2024-04-02 22:05] LABS: ALANINE AMINOTRANSFERASE 22 U/L (12-78); ALBUMIN 3.1 g/dL (3.4-5.0); ALKALINE PHOSPHATASE 99 U/L (46-116); ASPARTATE AMINOTRANSFERASE 18 U/L (15-37); BILIRUBIN,TOTAL 0.2 mg/dL (0.1-1.0); CREATINE KINASE, TOTAL ONLY 119 U/L (26-192); TOTAL PROTEIN, SERUM 7.1 g/dL (6.4-8.2)
[2024-04-02 22:13] LABS: COVID AG,FIA SOURCE NASAL SWAB
[2024-04-02 22:36] LABS: SARS-COV2 (COVID) ANTIGEN,FIA Negative (Negative)
[2024-04-02] MEDS: ALBUTEROL SULFATE HFA 90 MCG/PUFF 8 GM INHALER IH ONE (23:14)
== END | disposition still patient (30) ==
LOC: EMS 18:06
DX: J45.901 Unspecified asthma with (acute) exacerbation (principal); F41.9 Anxiety disorder, unspecified; F32.A Depression, unspecified; F17.210 Nicotine dependence, cigarettes, uncomplicated; F12.90 Cannabis use, unspecified, uncomplicated; Z98.890 Other specified postprocedural states; Z91.040 Latex allergy status; Z88.8 Allergy status to other drugs, medicaments and biological substances; Z20.822 Contact with and (suspected) exposure to COVID-19
CPT/HCPCS: 99285; 96374; 71045; 87426; 80053; 82550; 83735; 83880; 84484; 85025; 36415; 94640; 93005; J2919; J3535; J7613